=== PATIENT | female | born 1950 | race Caucasian/White ===

== ENCOUNTER 2020-03-31 10:00 | Observation (INO) ==
--- NOTE | 2020-03-31 10:18 | CT Scan Report ---
CT OF THE HEAD WITHOUT CONTRAST CLINICAL HISTORY: Stroke Like Symptoms COMPARISON STUDY: Head CT August 15, 2014. CT DOSE: 537.48 mGy.cm TECHNIQUE: Helical axial images of the head were obtained without IV contrast. Automated exposure con trol was utilized for the study. A dose lowering technique was utilized adhering to the principles o f ALARA. FINDINGS: No acute intracranial hemorrhage, midline shift or mass effect is present. The ventricular system is unremarkable. Mild matter hypodensity suggests small vessel disease. The basal cisterns are patent. No extra-axial collections are present. There are no findings to suggest acute dural sinus t hrombosis or acute territorial infarct. No significant calvarial abnormalities are present. Visualize d portions of the sinuses and mastoid air cells are clear. IMPRESSION: No acute intracranial findings. ACT 112: Negative or not required by law. Electronically signed by: Ashutosh Chambers M.D. 03/31/2020 10:16 AM
--- NOTE | 2020-03-31 10:23 | Emergency Department Note ---
Impression & Plan Stroke-like symptoms, Right facial numbness, Hypertension ED Provider Note NAME: UZAIR KNUTSON AGE: 70 SEX: F ARRIVES VIA: Ambulance INFORMANT: Patient, ED PROVIDER(S): Torito Bazan MD CHIEF COMPLAINT: Right sided numbness. PLAN: Disposition: Admit. Patient seen initially at 1000. MEDICAL DECISION MAKING: The patient is a 70-year-old woman with a past medical history of rheumatoid arthritis who presents emergency department with strokelike symptoms began at 0914 when she began to complain of numbness and tingling in the right side of her face and arm warfare member appreciated drooping of the right side of her face which all approximately lasted 20 minutes and was resolved upon EMS arrival though she did have a brief episode of word finding difficulty but then was speaking fluently for EMS and on arrival. She had a low-grade fever of 99.9 per EMS but has no respiratory symptoms and while she has family visiting from [place] there are no members with Covid-like symptoms. The patient was seen emergency department on 03/29 for presumed incomplete treatment of pyelonephritis change from Bactrim to ciprofloxacin. She denies cough, congestion, CP, SOB, n/v/diarrhea. Stroke alert was activated and given the patient then had intermittent aphasia and transient trouble reading telestroked evaluation was completed by Dr. Hector, [facility] telestroke neurology. During her evaluation the patient's symptoms did resolve and so was not considered a TPA candidate or need for emergent CTA given the patient's history of iodine allergy. Recommends full dose aspirin and reassessment for tolerance while inpatient given her history of GI symptoms related to aspirin. Recommends MRA of head and neck and MRI. EKG without overt acute ischemia. CXR most likely atelectasis as patient denies respiratory symptoms. WBC and platelets wnl. H/H 11.9/36.8 approximate to prior. Chemistry without acidosis. Electrolytes and LFTs unremarkable. Troponin negative/undetectable. Covid19 RNA, NAAT negative. Triage Nursing notes reviewed and agree them. Prior medical records reviewed Vital Signs: reviewed and remarkable for no significant abnormalities Differential diagnosis: Infection, dehydration, metabolic abnormality, hypo/hyperglycemia, electrolyte disturbance, anemia, hypoxia, cardiac sources, intracerebral event, toxicologic, neurologic, as well as other pathologies. ER treatment provided: See below. Diagnostics interpreted by me: ECG: NSR, 75 bpm, no ectopy, no overt ST elevation or depression. Cardiac Monitoring: An order for continuous cardiac monitoring was placed and demonstrated NSR, 75 bpm, no ectopy. Laboratory studies: See below Imaging studies: XR chest 1V portable CLINICAL HISTORY: Stroke Like Symptoms COMPARISON STUDY: Chest radiograph August 15, 2014. FINDINGS: Lung volumes are normal. There is no pneumothorax or pleural effusion. Minimal left basilar opacity is noted. Cardiac size is normal. Mediastinal contours are normal. There is no evidence for pulmonary edema. IMPRESSION: Minimal left basilar opacity. Atelectasis is favored although an infectious process could appear similar. -- CT OF THE HEAD WITHOUT CONTRAST CLINICAL HISTORY: Stroke Like Symptoms COMPARISON STUDY: Head CT August 15, 2014. CT DOSE: 537.48 mGy.cm TECHNIQUE: Helical axial images of the head were obtained without IV contrast. Automated exposure control was utilized for the study. A dose lowering technique was utilized adhering to the principles of ALARA. FINDINGS: No acute intracranial hemorrhage, midline shift or mass effect is present. The ventricular system is unremarkable. Mild matter hypodensity suggests small vessel disease. The basal cisterns are patent. No extra-axial collections are present. There are no findings to suggest acute dural sinus thrombosis or acute territorial infarct. No significant calvarial abnormalities are present. Visualized portions of the sinuses and mastoid air cells are clear. IMPRESSION: No acute intracranial findings. Consultation(s): Dr. Hector, [facility] telestroke neurology Dr[facility] Lagunas[facility] HPI: The patient is a 70-year-old woman with a past medical history of rheumatoid arthritis who presents emergency department with strokelike symptoms began at 0914 when she began to complain of numbness and tingling in the right side of her face and arm warfare member appreciated drooping of the right side of her face which all approximately lasted 20 minutes and was resolved upon EMS arrival though she did have a brief episode of word finding difficulty but then was speaking fluently for EMS and on arrival. She had a low-grade fever of 99.9 per EMS but has no respiratory symptoms and while she has family visiting from [place] there are no members with Covid-like symptoms. The patient was seen emergency department on 03/29 for presumed incomplete treatment of pyelonephritis change from Bactrim to ciprofloxacin. She denies cough, con gestion, CP, SOB, n/v/diarrhea. ROS: See above HPI for pertinent positives & negatives. A total of 10 systems reviewed and were otherwise negative. PAST MEDICAL HISTORY:See Below PAST SURGICAL HISTORY:See Below FAMILY HISTORY:See Below SOCIAL HISTORY:See Below HOME MEDICATIONS:See Below ALLERGIES:See Below VITALS:See Below PHYSICAL EXAMINATION: GENERAL: Awake, alert, anxious-appearing, in no distress, BMI 33.4 HENT: Normocephalic, atraumatic. Oropharynx with dry mucous membranes and otherwise unremarkable.. EYES: Normal conjunctiva. Sclera non-icteric. EOMI. No nystamgus. PEARRL. NECK: Supple. No nuchal rigidity. FROM. No JVD. RESPIRATORY: Clear to auscultation. CARDIAC: Regular rate, normal rhythm. Extremities warm and well perfused. Pulses equal. ABDOMEN: Soft, non-distended. No tenderness to palpation. No rebound or guarding. No masses. RECTAL: Deferred. MUSCULOSKELETAL: Chest examination reveals no tenderness. The back is symmetrical on inspection without obvious abnormality. There is no CVA tenderness to palpation. No joint edema. LOWER EXTREMITIES: Calves are equal size bilaterally and non-tender. No edema. No discoloration. NEURO: Face is symmetric. 5/5 strength and SILT x 4 extremities. Intact finger to nose. Speech is fluent on initial exam. SKIN: No rash or jaundice noted. ED COURSE: Critical Care: I have personally spent greater than 35 minutes of critical care time in the direct management of this patient. This includes bedside care, interpretation of diagnostic studies, and testing, discussion with consultants, patient, and family members, and other required patient management activities. This 35 minutes is in excess of all separately billable procedures. Torito Bazan MD Past Med/Surg History Medical History Rheumatoid arthritis Surgical History H/O gastric bypass H/O: hysterectomy History of cholecystectomy Social History Smoking Status: Current every day smoker Tobacco Type: Cigarettes Second Hand Exposure: No; Do You Dip or Chew Tobacco: No; Tobacco Cessation Education Requested by Patient: No Hx Alcohol Use: Yes Alcohol type: beer Hx Substance Use: No Preferred Language: Cypriot Communication Ability: Effective Current Living Situation: Family Other Information That Helps Us Care for You: Yes Feels Safe at Home: Yes Safety Concerns: Feels Safe At This Time Assistive Devices: Cane and Glasses Allergies Allergies Allergy/AdvReac Type Severity Reaction Status Date / Time infliximab Allergy Severe SHORTNESS Verified 03/31/20 12:01 OF BREATH clindamycin Allergy Mild Verified 03/31/20 12:01 iodine Allergy Mild Verified 03/31/20 12:01 Penicillins Allergy Mild Verified 03/31/20 12:01 Sulfa (Sulfonamide AdvReac Severe GI Unverified 03/31/20 12:01 Antibiotics) UPSET/DIARRHEA adhesive AdvReac Mild Unknown rxn Verified 03/31/20 12:01 Home Meds Home Medications Medication Instructions Recorded Confirmed cholecalciferol (vitamin D3) 2,000 mcg PO QAM 03/21/20 03/31/20 cyanocobalamin (vitamin B-12) 1,000 mcg IM .[id number] 03/21/20 03/31/20 [Cyanacobalamin] methotrexate sodium 20 mg PO WE 03/21/20 03/31/20 pedi multivit no.19-folic acid 1 tab PO BID 03/21/20 03/31/20 [Flintstones Multi-Vit Gummies] hydrocodone-acetaminophen 1 tab PO Q6H PRN 03/29/20 03/31/20 Previous Rx's Medication Instructions Recorded ciprofloxacin HCl 500 mg PO BID #14 tab 03/29/20 Results & Data (ED) Vital Signs Vital Signs - 24 hr 03/31/20 10:00 03/31/20 10:10 03/31/20 10:14 Pulse Rate 78 72 77 Pulse Rate [Right Finger] Pulse Rate from SpO2 Sensor 78 Respiratory Rate 20 20 22 Respiratory Effort / Characteristics Non-Labored Respiratory Depth Normal Blood Pressure 139/107 H 139/107 H Blood Pressure [Right Arm] Blood Pressure Mean 117 121 Blood Pressure Mean [Right Arm] Pulse Oximetry 96 100 96 Oxygen Delivery Method Room Air Room Air Sepsis Recent Fever Within 48 Hours No Sepsis New/Unexplained Change in Mental Status N/A Sepsis Action Taken by Nursing No Action Required 03/31/20 10:15 03/31/20 10:20 03/31/20 10:30 Pulse Rate 79 77 77 Pulse Rate [Right Finger] Pulse Rate from SpO2 Sensor 78 77 76 Respiratory Rate 14 16 17 Respiratory Effort / Characteristics Respiratory Depth Blood Pressure Blood Pressure [Right Arm] Blood Pressure Mean Blood Pressure Mean [Right Arm] Pulse Oximetry 97 97 96 Oxygen Delivery Method Sepsis Recent Fever Within 48 Hours Sepsis New/Unexplained Change in Mental Status Sepsis Action Taken by Nursing 03/31/20 10:31 03/31/20 10:40 03/31/20 10:46 Pulse Rate 73 75 74 Pulse Rate [Right Finger] 74 Pulse Rate from SpO2 Sensor 73 74 76 Respiratory Rate 25 H 21 19 Respiratory Effort / Characteristics Non-Labored Respiratory Depth Normal Blood Pressure 160/95 H 154/92 H Blood Pressure [Right Arm] 160/95 H Blood Pressure Mean 112 101 Blood Pressure Mean [Right Arm] 116 Pulse Oximetry 96 96 98 Oxygen Delivery Method Room Air Sepsis Recent Fever Within 48 Hours Sepsis New/Unexplained Change in Mental Status Sepsis Action Taken by Nursing 03/31/20 10:50 03/31/20 11:13 03/31/20 11:20 Pulse Rate 77 74 74 Pulse Rate [Right Finger] Pulse Rate from SpO2 Sensor 78 Respiratory Rate 18 23 22 Respiratory Effort / Characteristics Respiratory Depth Blood Pressure Blood Pressure [Right Arm] Blood Pressure Mean Blood Pressure Mean [Right Arm] Pulse Oximetry 97 Oxygen Delivery Method Sepsis Recent Fever Within 48 Hours Sepsis New/Unexplained Change in Mental Status Sepsis Action Taken by Nursing 03/31/20 11:30 03/31/20 11:40 03/31/20 11:50 Pulse Rate 75 69 75 Pulse Rate [Right Finger] Pulse Rate from SpO2 Sensor Respiratory Rate 20 21 23 Respiratory Effort / Characteristics Respiratory Depth Blood Pressure Blood Pressure [Right Arm] Blood Pressure Mean Blood Pressure Mean [Right Arm] Pulse Oximetry Oxygen Delivery Method Sepsis Recent Fever Within 48 Hours Sepsis New/Unexplained Change in Mental Status Sepsis Action Taken by Nursing 03/31/20 12:00 Pulse Rate 72 Pulse Rate [Right Finger] Pulse Rate from SpO2 Sensor Respiratory Rate 14 Respiratory Effort / Characteristics Respiratory Depth Blood Pressure Blood Pressure [Right Arm] Blood Pressure Mean Blood Pressure Mean [Right Arm] Pulse Oximetry Oxygen Delivery Method Sepsis Recent Fever Within 48 Hours Sepsis New/Unexplained Change in Mental Status Sepsis Action Taken by Nursing Laboratory Data Attestation: I reviewed the patient's lab results. Result diagrams: 03/31/20 10:20 03/31/20 10:20 Lab Results 03/31/20 03/31/2020 Range/Units 10:16 10:20 10:20 WBC 6.76 (4.8-10.8) K/uL RBC 4.00 L (4.2-5.4) M/uL Hgb 11.9 L (12.0-16.0) g/dL Hct 36.8 L (37-47) % MCV 92.0 (80-100) fL MCH 29.8 (25-34) pg MCHC 32.3 (32-36) g/dL RDW Std Deviation 52.1 H (36.4-46.3) fL RDW Coeff of Doroteo 15.5 H (11.5-14.5) % Plt Count 228 (130-400) K/uL MPV 10.7 H (7.4-10.4) fL Immature Gran % (Auto) 0.1 % Neut % (Auto) 54.0 % Lymph % (Auto) 27.5 % [place] % (Auto) 16.9 % Eos % (Auto) 0.9 % Baso % (Auto) 0.6 % Neut # (Auto) 3.65 (1.4-6.5) K/uL Lymph # (Auto) 1.86 (1.2-3.4) K/uL [place] # (Auto) 1.14 H (0.11-0.59) K/uL Eos # (Auto) 0.06 (0-0.5) K/uL Baso # (Auto) 0.04 (0-0.2) K/uL Immature Gran # (Auto) 0.01 (0.00-0.02) K/uL PT (9.0-12.0) Seconds INR (0.9-1.1) APTT (21.0-31.0) Seconds PTT Ratio Sodium (136-145) mmol/L Potassium (3.5-5.1) mmol/L Chloride (98-107) mmol/L Carbon Dioxide (21-32) mmol/L Anion Gap (3-11) BUN (7-18) mg/dl Creatinine (0.6-1.2) mg/dl Est Cr Clr Drug Dosing ml/min Est GFR ( Amer) Est GFR (Non-Af Amer) BUN/Creatinine Ratio (10-20) Glucose (70-99) mg/dl POC Glucose 126 H (70-99) mg/dl Calcium (8.5-10.1) mg/dl Magnesium (1.8-2.4) mg/dl Total Bilirubin (0.2-1) mg/dl AST (15-37) U/L ALT (12-78) U/L Alkaline Phosphatase (45-117) U/L Troponin I (0-0.045) ng/ml Total Protein (6.4-8.2) gm/dl Albumin (3.4-5.0) gm/dl Globulin (2.5-4.0) gm/dl Albumin/Globulin Ratio (0.9-2) COVID-19 Eval Order SARS-CoV-2, RNA, NAAT (NEGATIVE) Blood Type O Positive Antibody Screen NEGATIVE 03/31/20 03/31/20 03/31/20 Range/Units 10:20 10:20 11:15 WBC (4.8-10.8) K/uL RBC (4.2-5.4) M/uL Hgb (12.0-16.0) g/dL Hct (37-47) % MCV (80-100) fL MCH (25-34) pg MCHC (32-36) g/dL RDW Std Deviation (36.4-46.3) fL RDW Coeff of Doroteo (11.5-14.5) % Plt Count (130-400) K/uL MPV (7.4-10.4) fL Immature Gran % (Auto) % Neut % (Auto) % Lymph % (Auto) % [place] % (Auto) % Eos % (Auto) % Baso % (Auto) % Neut # (Auto) (1.4-6.5) K/uL Lymph # (Auto) (1.2-3.4) K/uL [place] # (Auto) (0.11-0.59) K/uL Eos # (Auto) (0-0.5) K/uL Baso # (Auto) (0-0.2) K/uL Immature Gran # (Auto) (0.00-0.02) K/uL PT 11.8 (9.0-12.0) Seconds INR 1.1 (0.9-1.1) APTT 25.6 (21.0-31.0) Seconds PTT Ratio 0.9 Sodium 137 (136-145) mmol/L Potassium 3.6 (3.5-5.1) mmol/L Chloride 101 (98-107) mmol/L Carbon Dioxide 29 (21-32) mmol/L Anion Gap 7.0 (3-11) BUN 13 (7-18) mg/dl Creatinine 0.57 L (0.6-1.2) mg/dl Est Cr Clr Drug Dosing 90.3 ml/min Est GFR ( Amer) 108.1 Est GFR (Non-Af Amer) 93.3 BUN/Creatinine Ratio 23.2 H (10-20) Glucose 120 H (70-99) mg/dl POC Glucose (70-99) mg/dl Calcium 8.7 (8.5-10.1) mg/dl Magnesium 1.8 (1.8-2.4) mg/dl Total Bilirubin 0.5 (0.2-1) mg/dl AST 30 (15-37) U/L ALT 40 (12-78) U/L Alkaline Phosphatase 83 (45-117) U/L Troponin I < 0.015 (0-0.045) ng/ml Total Protein 6.8 (6.4-8.2) gm/dl Albumin 3.0 L (3.4-5.0) gm/dl Globulin 3.8 (2.5-4.0) gm/dl Albumin/Globulin Ratio 0.8 L (0.9-2) COVID-19 Eval [id number] SARS-CoV-2, RNA, NAAT (NEGATIVE) Blood Type Antibody Screen 03/31/20 Range/Units 11:15 WBC (4.8-10.8) K/uL RBC (4.2-5.4) M/uL Hgb (12.0-16.0) g/dL Hct (37-47) % MCV (80-100) fL MCH (25-34) pg MCHC (32-36) g/dL RDW Std Deviation (36.4-46.3) fL RDW Coeff of Doroteo (11.5-14.5) % Plt Count (130-400) K/uL MPV (7.4-10.4) fL Immature Gran % (Auto) % Neut % (Auto) % Lymph % (Auto) % [place] % (Auto) % Eos % (Auto) % Baso % (Auto) % Neut # (Auto) (1.4-6.5) K/uL Lymph # (Auto) (1.2-3.4) K/uL [place] # (Auto) (0.11-0.59) K/uL Eos # (Auto) (0-0.5) K/uL Baso # (Auto) (0-0.2) K/uL Immature Gran # (Auto) (0.00-0.02) K/uL PT (9.0-12.0) Seconds INR (0.9-1.1) APTT (21.0-31.0) Seconds PTT Ratio Sodium (136-145) mmol/L Potassium (3.5-5.1) mmol/L Chloride (98-107) mmol/L Carbon Dioxide (21-32) mmol/L Anion Gap (3-11) BUN (7-18) mg/dl Creatinine (0.6-1.2) mg/dl Est Cr Clr Drug Dosing ml/min Est GFR ( Amer) Est GFR (Non-Af Amer) BUN/Creatinine Ratio (10-20) Glucose (70-99) mg/dl POC Glucose (70-99) mg/dl Calcium (8.5-10.1) mg/dl Magnesium (1.8-2.4) mg/dl Total Bilirubin (0.2-1) mg/dl AST (15-37) U/L ALT (12-78) U/L Alkaline Phosphatase (45-117) U/L Troponin I (0-0.045) ng/ml Total Protein (6.4-8.2) gm/dl Albumin (3.4-5.0) gm/dl Globulin (2.5-4.0) gm/dl Albumin/Globulin Ratio (0.9-2) COVID-19 Eval Order SARS-CoV-2, RNA, NAAT NEGATIVE (NEGATIVE) Blood Type Antibody Screen Administered Medications Ciprofloxacin (Ciprofloxacin 500 Mg Tab) 500 mg PO BID STEVE Stop: 04/05/20 20:59 Last Admin: 03/31/20 20:29 Dose: 500 mg Documented by: [id number] Insulin Aspart (Insulin Aspart 100 Units/Ml 3 Ml Pen) 0 units SC ACHS STEVE Stop: 04/30/20 16:29 Last Admin: 03/31/20 20:32 Dose: 1 units Documented by: [id number] Cosigned by: [id number] Admin: 03/31/20 18:23 Dose: Not Given Documented by: [id number] Cosigned by: [id number] Multivitamins/Folic Acid/Vitamin C (Multivitamin Chewable Tab) 1 tab PO BID STEVE Stop: 04/30/20 20:59 Last Admin: 03/31/20 20:28 Dose: 1 tab Documented by: [id number] Pantoprazole Sodium (Pantoprazole 40 Mg Tab) 40 mg PO DAILY STEVE Stop: 04/03/20 09:01 Last Admin: 03/31/20 18:23 Dose: Not Given Documented by: [id number] Discontinued Medications Aspirin (Aspirin Chew 324 Mg) Confirm Administered Dose 324 mg .ROUTE .STK-MED ONE Stop: 03/31/20 10:41 Last Admin: 03/31/20 10:42 Dose: 324 mg Documented by: [id number] Aspirin (Aspirin Chew 324 Mg) 324 mg PO NOW STA Stop: 03/31/20 10:51 Last Admin: 03/31/20 11:00 Dose: Not Given Documented by: [id number] Sodium Chloride (Nss 1000ml) 1,000 mls @ 999 mls/hr IV .Q1H1M ONE Stop: 03/31/20 11:24 Last Infusion: 03/31/20 14:07 Dose: 0 mls/hr Documented by: [id number] Admin: 03/31/20 10:42 Dose: 999 mls/hr Documented by: [id number] Discharge Plan Visit Data Chief Complaint: Stroke Alert ED Provider: Torito Bazan Discharge Problem: Stroke-like symptoms, Right facial numbness, Hypertension Patient Disposition: Admitted As Inpatient Discharge Instructions Interventions: ED Discharge Assessment Last Done: 03/31/20 14:08 Discharge Problem: Hypertension Qualifiers: Hypertension type: unspecified Qualified Code(s): I10 - Essential (primary) hypertension
[2020-03-31] MEDS ORDERED: SODIUM CHLORIDE 0.9% 1000ML 1,000 ML IV ONE (10:24)
[2020-03-31 10:29] LABS: Basophils # (auto) 0.04 K/uL (0-0.2); Basophils % (auto) 0.6 %; Eosinophils # (auto) 0.06 K/uL (0-0.5); Eosinophils % (auto) 0.9 %; Hematocrit (blood only) 36.8 % (37-47); Hemoglobin 11.9 g/dL (12.0-16.0); Immature Granulocytes # (auto) 0.01 K/uL (0.00-0.02); Immature Granulocytes % (auto) 0.1 %; Lymphocytes # (auto) 1.86 K/uL (1.2-3.4); Lymphocytes % (auto) 27.5 %; Mean Corpuscular Hemoglobin 29.8 pg (25-34); Mean Corpuscular Hgb Conc 32.3 g/dL (32-36); Mean Platelet Volume 10.7 fL (7.4-10.4); Monocytes # (auto) 1.14 K/uL (0.11-0.59); Monocytes % (auto) 16.9 %; Neutrophils # (auto) 3.65 K/uL (1.4-6.5); Platelet Count 228 K/uL (130-400); RDW Coefficient of Variation 15.5 % (11.5-14.5); RDW Standard Deviation 52.1 fL (36.4-46.3); White Blood Count 6.76 K/uL (4.8-10.8)
[2020-03-31] MEDS ORDERED: ASPIRIN CHEW 324 MG ONE (10:40)
[2020-03-31 10:45] LABS: INR 1.1 (0.9-1.1); Partial Thromboplastin Ratio 0.9; Partial Thromboplastin Time 25.6 Seconds (21.0-31.0); Prothrombin Time 11.8 Seconds (9.0-12.0)
[2020-03-31 10:48] LABS: Alanine Aminotransferase 40 U/L (12-78); Aspartate Aminotransferase 30 U/L (15-37); BUN Creatinine Ratio 23.2 (10-20); Blood Urea Nitrogen 13 mg/dl (7-18); Calcium 8.7 mg/dl (8.5-10.1); Carbon Dioxide 29 mmol/L (21-32); Chloride 101 mmol/L (98-107); Creatinine Clr Calc Pharmacy 90.3 ml/min; Est GFR (African American) 108.1; Est GFR (Non-African American) 93.3; Glucose 120 mg/dl (70-99); Magnesium 1.8 mg/dl (1.8-2.4); Potassium 3.6 mmol/L (3.5-5.1); Sodium 137 mmol/L (136-145)
[2020-03-31] MEDS ORDERED: ASPIRIN CHEW 324 MG PO STA (10:50)
[2020-03-31 10:53] LABS: Albumin Globulin Ratio 0.8 (0.9-2); Alkaline Phosphatase 83 U/L (45-117); Bilirubin,Total 0.5 mg/dl (0.2-1); Globulin 3.8 gm/dl (2.5-4.0); Total Protein 6.8 gm/dl (6.4-8.2); Troponin I < 0.015 ng/ml (0-0.045)
--- NOTE | 2020-03-31 11:03 | XRay Report ---
XR chest 1V portable CLINICAL HISTORY: Stroke Like Symptoms COMPARISON STUDY: Chest radiograph August 15, 2014. FINDINGS: Lung volumes are normal. There is no pneumothorax or pleural effusion. Minimal left basilar opacity is noted. Cardiac size is normal. Mediastinal contours are normal. There is no evidence for pulmonary edema. IMPRESSION: Minimal left basilar opacity. Atelectasis is favored although an infectious process coul d appear similar. ACT 112: Negative or not required by law. Electronically signed by: Ashutosh Chambers M.D. 03/31/2020 11:02 AM
--- NOTE | 2020-03-31 12:32 | History & Physical Report ---
Date of Service March 31, 2020 Assessment & Plan (1) Stroke-like symptoms: Presented with right upper extremity numbness and tingling with right facial droop around 9:14 AM on 03/31/2020 Associated with difficulty in finding words which resolved subsequently No other associated symptoms were noted except mild headache Evaluated by telemedicine from [place] and recommended to have full dose of aspirin and no TPA History of questionable GI upset with NSAID use we will put her on Protonix 40 mg daily Initial CAT scan is unremarkable We will get MRA of the head and neck and MRI of the head without contrast and echocardiogram Will get lipid profile in the morning and decide on statin therapy Does not have any problem with swallowing [facility] will be consulted PT and OT evaluation (2) Acute pyelonephritis: Recently diagnosed to have E. coli UTI and possible pyonephritis Has been on Cipro and will continue (3) Rheumatoid arthritis: Has severe remote arthritic changes involving the upper and lower extremities No acute arthritis We will continue methotrexate (4) Diabetes: Has not been taking any medication and/or insulin We will put her on sliding scale insulin coverage while in the hospital (5) Closed head injury: No acute problem DVT prophylaxis Subcu heparin CODE STATUS Full Discussed with the daughter History of Present Illness Chief Complaint: Right-sided hand numbness and facial droop Primary Care Provider: Demetrio Noel MD She is a 70-year-old obese female with significant past medical history of rheumatoid arthritis, type 2 diabetes , history of closed head injury and recent diagnosis of acute pyonephritis has been complaining of sudden onset of right upper extremity numbness and tingling associated with right facial droop and garbled speech which happened around 9:14 AM today. She was saying goodbye to her family members who were traveling to [place] today and when she bended forward to reach her grand she felt dizzy and at the same time experienced right upper extremity numbness with facial droop on the right side and garbled speech. This lasted for about 5 minutes and following that she has had similar numbness involving the left upper extremity as well. She complains to have some headache which is bifrontal during this episode. She denies any blurred vision, chest pain and/or palpitation, any shortness of breath, any abdominal discomfort, nausea and or vomiting. He did not complain any weakness involving any of the extremities. She did not have any episode like this before. She was brought into the emergency room via ambulance and she was evaluated by telemetry stroke team from [place]. Her symptoms resolved and initial CAT scan of the head was unremarkable and other relevant blood test were unremarkable to. She did not qualify for any TPA and she was advised to have full dose aspirin as per [place] neurologist. She is allergic to iodine and she will have a MRA of the head and neck and MRI of the head today. Allergies Allergy/AdvReac Type Severity Reaction Status Date / Time infliximab Allergy Severe SHORTNESS Verified 03/31/20 12:01 OF BREATH clindamycin Allergy Mild Verified 03/31/20 12:01 iodine Allergy Mild Verified 03/31/20 12:01 Penicillins Allergy Mild Verified 03/31/20 12:01 Sulfa (Sulfonamide AdvReac Severe GI Unverified 03/31/20 12:01 Antibiotics) UPSET/DIARRHEA adhesive AdvReac Mild Unknown rxn Verified 03/31/20 12:01 Home Medications Medication Instructions Recorded Confirmed Type cholecalciferol (vitamin D3) 2,000 mcg PO QAM 03/21/20 03/31/20 History cyanocobalamin (vitamin B-12) 1,000 mcg IM .[id number] 03/21/20 03/31/20 History [Cyanacobalamin] methotrexate sodium 20 mg PO WE 03/21/20 03/31/20 History pedi multivit no.19-folic acid 1 tab PO BID 03/21/20 03/31/20 History [Flintstones Multi-Vit Gummies] ciprofloxacin HCl 500 mg PO BID #14 tab 03/29/20 03/31/20 Rx hydrocodone-acetaminophen 1 tab PO Q6H PRN 03/29/20 03/31/20 History Past Med/Surg History Medical History Rheumatoid arthritis Surgical History H/O gastric bypass H/O: hysterectomy History of cholecystectomy Social History Smoking Status: Unknown if ever smoked Tobacco Type: Cigarettes Preferred Language: Sinhala Feels Safe at Home: Yes Review of Systems Review of Systems: All systems reviewed & are unremarkable except as noted in HPI & below Physical Exam Physical Exam: Lying in bed comfortably Constitutional: well developed, well nourished and + obese; no acute distress and not ill appearing Eyes: PERRL, conjunctivae normal, anicteric sclerae ENMT: external ear and nose normal, oropharynx normal Neck: trachea midline, no thyromegaly Respiratory: normal respiratory effort; no respiratory distress Auscultation: lungs clear to auscultation bilaterally and + diminished lung sounds (Minimally diminished breath sounds bilaterally) Cardiovascular: Rate/Rhythm: regular rate and regular rhythm Heart Sounds: no murmur Extremities: + edema (Trace edema bilaterally) Gastrointestinal (Abdomen): Inspection/Auscultation: abdomen normal to inspection and normal bowel sounds; abdomen not distended Percussion/Palpation: abdomen soft; abdomen nontender Musculoskeletal: Has severe rheumatoid changes involving the upper and lower extremities but no acute arthritis in any joint Neurologic: Alert, awake and oriented x3. No facial droop and no focal sensory and motor deficit appreciated Lymphatic: no cervical or axillary lymphadenopathy Results & Data Results & Data ([facility]) Vital Signs (Past 12 Hours) Vital Signs Pulse Pulse Resp BP BP Pulse Ox 03/31/20 11:13 74 23 03/31/20 10:50 77 18 97 03/31/20 10:46 74 19 154/92 H 98 03/31/20 10:40 75 21 96 03/31/20 10:31 73 74 25 H 160/95 H 160/95 H 96 03/31/20 10:30 77 17 96 03/31/20 10:20 77 16 97 03/31/20 10:15 79 14 97 03/31/20 10:14 77 22 139/107 H 96 03/31/20 10:10 72 20 100 03/31/20 10:00 78 20 139/107 H 96 Laboratory Results Short CBC 03/31/20 Range/Units 10:20 WBC 6.76 (4.8-10.8) K/uL Hgb 11.9 L (12.0-16.0) g/dL Hct 36.8 L (37-47) % Plt Count 228 (130-400) K/uL BMP 03/31/20 10:20 Sodium 137 Potassium 3.6 Chloride 101 Carbon Dioxide 29 BUN 13 Creatinine 0.57 L Glucose 120 H Calcium 8.7 Cardiac Enzymes 03/31/20 Range/Units 10:20 Troponin I < 0.015 (0-0.045) ng/ml Liver Function 03/31/20 Range/Units 10:20 Total Bilirubin 0.5 (0.2-1) mg/dl AST 30 (15-37) U/L ALT 40 (12-78) U/L Alkaline Phosphatase 83 (45-117) U/L Albumin 3.0 L (3.4-5.0) gm/dl Medications Administered Current Inpatient Medications Aspirin (Aspirin 325 Mg Ectab) 325 mg PO QAM STEVE Stop: 05/01/20 08:59 Heparin Sodium (Porcine) (Heparin Sod 5,000 Unit/0.5 Ml Vial) 5,000 units SQ Q12 STEVE Stop: 04/30/20 20:59 Pantoprazole Sodium (Pantoprazole 40 Mg Tab) 40 mg PO DAILY STEVE Stop: 04/03/20 09:01 Code Status & VTE Plan VTE Prophylaxis Plan VTE Prophylaxis will be ordered: Yes
[2020-03-31] MEDS ORDERED: GLUCOSE 10 TABS/TUBE PO PRN (12:33)
[2020-03-31] MEDS ORDERED: GLUCOSE 40% GEL 15 GM TUBE PO PRN (12:33)
[2020-03-31] MEDS ORDERED: CARBOHYDRATES FOR HYPOGLYCEMIA PO PRN (12:33)
[2020-03-31] MEDS ORDERED: DEXTROSE 50% 50 ML SYRINGE IV PRN (12:33)
[2020-03-31] MEDS ORDERED: GLUCAGON FOR INJ 1 MG VIAL SQ PRN (12:33)
--- NOTE | 2020-03-31 13:44 | Electrocardiogram Report ---
Test Reason : Blood Pressure : / mmHG Vent. Rate : 075 BPM Atrial Rate : 075 BPM P-R Int : 158 ms QRS Dur : 072 ms QT Int : 396 ms P-R-T Axes : 013 031 043 degrees QTc Int : 442 ms Normal sinus rhythm Normal ECG When compared with ECG of 21-MAR-2020 18:12, No significant change was found Confirmed by Willie Jean ([id number]) on 03/31/2020 1:44:32 PM Referred By: REFERRED SELF Confirmed By:Willie Jean
[2020-03-31] MEDS ORDERED: HYDROcodone/ACETAMINOPHEN 10/325 TAB PO PRN (15:47)
--- NOTE | 2020-03-31 17:11 | Magnetic Resonance Report ---
MRI OF THE BRAIN WITHOUT CONTRAST CLINICAL HISTORY: Stroke like symptoms COMPARISON STUDY: Head CT August 15, 2014 and March 31, 2020. TECHNIQUE: Utilizing a 1.5 Elizabet magnet and dedicated coil, multiplanar, multiecho imaging of the bra in was performed without IV contrast. FINDINGS: There are no foci of stricture diffusion to suggest acute infarct. No acute intracranial he morrhage, midline shift or mass effect is present. Brain volume is normal for age. Ventricular system is unremarkable. Basal cisterns are patent. There are no extra-axial collections. Flow-voids for the major intracranial vessels are present. No intracranial masses identified on this unenhanced examina tion. Scattered small white matter T2 hyperintense foci suggest mild small vessel disease. Calvarial signal is normal. There is a mucous retention cyst within the right maxillary sinus. IMPRESSION: 1. No acute intracranial findings. 2. Multiple small white matter T2 hyperintense foci suggestive of mild small vessel disease. ACT 112: Negative or not required by law. Electronically signed by: Ashutosh Chambers M.D. 03/31/2020 5:09 PM
--- NOTE | 2020-03-31 17:13 | Magnetic Resonance Report ---
MRA OF THE INTRACRANIAL CIRCULATION WITHOUT CONTRAST CLINICAL HISTORY: Stroke like symptoms COMPARISON STUDY: None. TECHNIQUE: Utilizing a 1.5 Elizabet magnet and 3-D eivv-js-clstou technique, unenhanced MRA of the intra cranial circulation was obtained. FINDINGS: The bilateral M1, M2, A1 and A2 segments are patent. There is no abrupt vessel cut off. No intracranial aneurysm is identified. Posterior circulation is intact. Exam is mildly compromised by m otion artifact. There is moderate stenosis of the bilateral A1 segments. IMPRESSION: 1. No central vessel occlusion. No intracranial aneurysm. 2. Moderate stenosis of the bilateral A1 segments. ACT 112: Negative or not required by law. Electronically signed by: Ashutosh Chambers M.D. 03/31/2020 5:12 PM
--- NOTE | 2020-03-31 17:15 | Magnetic Resonance Report ---
MRA OF THE NECK WITHOUT CONTRAST CLINICAL HISTORY: Stroke like symptoms COMPARISON STUDY: None. TECHNIQUE: A 1.5 Elizabet magnet was utilized. 2-D and 3-D iuzw-op-iathuo imaging was performed to obt ain unenhanced MRA of the neck. NASCET criteria were utilized to estimate the degree of carotid sten osis. FINDINGS: This exam is markedly compromised given lack of postcontrast imaging. Evaluation of the soheila ateral common carotid, cervical internal carotid and vertebral arteries is essentially nondiagnostic. These vessels are grossly patent. IMPRESSION: Exam significantly compromised given lack of postcontrast imaging. Evaluation of the juan or vessels nearly nondiagnostic although these vessels are grossly patent. ACT 112: Negative or not required by law. Electronically signed by: Ashutosh Chambers M.D. 03/31/2020 5:14 PM
[2020-03-31] MEDS: PANTOprazole 40 MG TAB PO SCH (18:23)
[2020-03-31] MEDS: INSULIN ASPART 100 UNITS/ML 3 ML PEN SC SCH ×2 (18:23→20:32)
[2020-03-31] MEDS: MULTIVITAMIN CHEWABLE TAB PO SCH (20:28)
[2020-03-31] MEDS: CIPROFLOXACIN 500 MG TAB PO SCH (20:29)
[2020-03-31] MEDS: HEPARIN SOD 5,000 UNIT/0.5 ML VIAL SQ SCH (23:29)
[2020-04-01 07:41] LABS: Basophils # (auto) 0.03 K/uL (0-0.2); Basophils % (auto) 0.5 %; Eosinophils % (auto) 1.7 %; Hematocrit (blood only) 36.3 % (37-47); Immature Granulocytes # (auto) 0.01 K/uL (0.00-0.02); Immature Granulocytes % (auto) 0.2 %; Lymphocytes # (auto) 2.48 K/uL (1.2-3.4); Lymphocytes % (auto) 41.5 %; Mean Corpuscular Hemoglobin 30.1 pg (25-34); Mean Corpuscular Hgb Conc 33.1 g/dL (32-36); Mean Platelet Volume 11.1 fL (7.4-10.4); Monocytes # (auto) 1.07 K/uL (0.11-0.59); Monocytes % (auto) 17.9 %; Neutrophils # (auto) 2.28 K/uL (1.4-6.5); Neutrophils % (auto) 38.2 %; Platelet Count 285 K/uL (130-400); RDW Coefficient of Variation 15.7 % (11.5-14.5); RDW Standard Deviation 52.1 fL (36.4-46.3); Red Blood Count 3.99 M/uL (4.2-5.4); White Blood Count 5.97 K/uL (4.8-10.8)
[2020-04-01] MEDS: MULTIVITAMIN CHEWABLE TAB PO SCH (07:56)
[2020-04-01] MEDS: INSULIN ASPART 100 UNITS/ML 3 ML PEN SC SCH (07:58)
[2020-04-01] MEDS: CIPROFLOXACIN 500 MG TAB PO SCH (07:58)
[2020-04-01] MEDS: HEPARIN SOD 5,000 UNIT/0.5 ML VIAL SQ SCH (07:58)
[2020-04-01 08:01] LABS: BUN Creatinine Ratio 17.2 (10-20); Calcium 8.4 mg/dl (8.5-10.1); Creatinine Clr Calc Pharmacy 93.6 ml/min; Est GFR (African American) 109.4; Est GFR (Non-African American) 94.4; Potassium 3.7 mmol/L (3.5-5.1)
[2020-04-01] MEDS ORDERED: ASPIRIN 325 MG ECTAB PO SCH (09:00)
[2020-04-01] MEDS ORDERED: CHOLECALCIFEROL 1,000 UNITS 25 MCG TAB PO SCH (09:00)
--- NOTE | 2020-04-01 11:55 | Consultation Report ---
DATE OF CONSULTATION: 04/01/2020 NEUROLOGY CONSULTATION NOTE CHIEF COMPLAINT: Right hand numbness and facial droop. HISTORY OF PRESENT ILLNESS: A 70-year-old woman with a history of acute pyelonephritis, rheumatoid arthritis, and diabetes, admitted to the hospital yesterday for sudden onset of right upper extremity numbness and tingling, associated with a right facial droop and garbled speech. Symptoms occurred around 9:00 a.m. yesterday morning. She was saying good bye to her family who were traveling to [place] when she felt dizzy and at the same time she experienced right upper extremity numbness and facial droop on the right side and dysarthric speech. The episode lasted for about 5 minutes, which then followed with numbness involving the left upper extremity as well. Upon arrival, she complained of some headache which was bifrontal. She had no blurred vision, chest pain, palpitations or shortness of breath. She denies any weakness involving any of the extremities. She has never had any prior similar symptoms. She was brought to the Emergency Department via ambulance and evaluated by a tele stroke provider. Her symptoms had resolved by the time of the her CT scan. TPA was not administered. She was given aspirin and admitted for further stroke evaluation. Neurology was consulted upon admission. ALLERGIES: INFLIXIMAB, CLINDAMYCIN, IODINE, PENICILLIN, SULFA, ADHESIVE TAPE. HOME MEDICATIONS: Vitamin D, vitamin B12, methotrexate, multivitamin, ciprofloxacin, hydrocodone. PAST MEDICAL HISTORY: Pertinent for rheumatoid arthritis and type 2 diabetes. PAST SURGICAL HISTORY: Gastric bypass, hysterectomy, cholecystectomy. FAMILY HISTORY: No pertinent family history noted. SOCIAL HISTORY: She is a nonsmoker, denies any alcohol use. REVIEW OF SYSTEMS: All systems reviewed and unremarkable except as noted above in the HPI. PHYSICAL EXAMINATION: VITAL SIGNS: Blood pressure 125/82, pulse is 76, respiratory rate 18, temperature is 36.8 degrees Celsius, oxygen saturation is 94% on room air. I did not see or examine this patient. Patient was discharged this afternoon prior to me seeing her. DIAGNOSTIC TESTING AND LABORATORY VALUES: WBC 5.97, hemoglobin 12.0, platelet count 285. INR is 1.1. Sodium is 139, potassium 3.7, chloride 104, carbon dioxide 29, BUN is 9, creatinine 0.55, glucose is 110, triglycerides are 146, LDL is 86, HDL is 44. IMAGING: Head CT noncontrast showed no acute intracranial findings. MRI of the brain showed no acute intracranial findings. No evidence of acute stroke. Multiple small white matter T2 hyperintensities suggestive of mild small vessel ischemic disease. MRA of the head, no intracranial vessel occlusion. No intracranial aneurysm, moderate stenosis of the bilateral A1 segments. MRA of the neck, limited examination due to post-contrast imaging. Vessels are grossly patent. ASSESSMENT AND PLAN: A 70-year-old woman with history of rheumatoid arthritis on methotrexate and non-insulin dependent type 2 diabetes, admitted to the hospital yesterday with transient right upper extremity numbness, facial droop, and dysarthria, concerning for possible transient ischemic attack. MRI brain and vessel imaging shows no evidence of an acute stroke. Agree with starting aspirin, which could be the enteric coated form if the patient has problems with NSAIDs. Otherwise, would recommend starting a low dose statin medication. Otherwise, I believe the patient is okay for discharge and can follow up with neurology in 8 weeks. Blood pressure appears well controlled with systolic blood pressure goal less than 140 and diastolic blood pressure less than 90. Transthoracic echocardiogram was already completed and shows a normal ejection fraction with no evidence of a cardiac thrombus. Agree with PT, OT for any rehabilitation needs. Otherwise, please contact me with any additional questions or concerns. SABAS
[2020-04-01] MEDS: PANTOprazole 40 MG TAB PO SCH (12:12)
--- NOTE | 2020-04-01 12:44 | Hospitalist Progress Note ---
Date of Service April 01, 2020 Assessment & Plan (1) Stroke-like symptoms: Presented with right upper extremity numbness and tingling with right facial droop around 9:14 AM on 03/31/2020 Associated with difficulty in finding words which resolved subsequently No other associated symptoms were noted except mild headache Evaluated by telemedicine from [place] and recommended to have full dose of aspirin and no TPA on admission Her head CT and Brain MRI and Head MRA and Neck MRA did not find evidence for acute infarcts of the brain Patient to be discharge to home Patient to follow up with outpatient primary care doctor with [facility]. Patient will need referral/appointment to see [facility] neurology in 8 weeks (as per 04/01/2020 Dr. Herrera Colmenares neurology consult of [facility] "A 70-year-old woman with history of rheumatoid arthritis on methotrexate and non- insulin dependent type 2 diabetes, admitted to the hospital yesterday with transient right upper extremity numbness, facial droop, and dysarthria, concerning for possible transient ischemic attack. MRI brain and vessel imaging shows no evidence of an acute stroke. Agree with starting aspirin, which could be the enteric coated form if the patient has problems with NSAIDs. Otherwise, would recommend starting a low dose statin medication. Otherwise, I believe the patient is okay for discharge and can follow up with neurology in 8 weeks. Blood pressure appears well controlled with systolic blood pressure goal less than 140 and diastolic blood pressure less than 90. Transthoracic echocardiogram was already completed and shows a normal ejection fraction with no evidence of a cardiac thrombus.") Patient to follow up with primary care on diabetes screening discharge medications sent electronically to pharmacy [facility] [address] [place] [id number] of aspirin 81 mg daily (with enteric coating) and atorvastatin 20 mg daily based on neurology recommendations. of aspirin 81 mg daily (with enteric coating) and atorvastatin 20 mg daily based on neurology recommendations. Patient can take pantoprazole 40 mg daily to minimize risk of GI bleed while on aspirin based on hospitalization utilization review Code 44 that patient does not require a 2 midnight stay as full admission and is to be discharge under observation status. This is verified by my hospitalist physician colleague (2) Diabetes: Patient to follow up with primary care on diabetes screening History of Pyelonephritis (resolved, completed treatment) -patient had finished 2 week course of antibiotics for pyelonephritis indication prior to coming to hospital. the recent 03/29/2020 CT abdomen did not find evidence of renal inflammation. Patient's admission UA is normal (3) Rheumatoid arthritis: Has severe remote arthritic changes involving the upper and lower extremities No acute arthritis continue methotrexate Admission and Anticipated Discharge Date Admission Date: March 31, 2020 Subjective Patient is ambulatory. She has a questionable right sided facial asymmetry suggestive of facial droop but no facial symptoms currently. Her hands have deformities from history of rheumatoid arthritis but no focal motor deficits on exam between right and left side of the body. Patient breathing on room air. No acute distress. She has eaten the meals without choking. There is no apparent dysarthria with her speech currently. Discharge plans and instructions discussed with patient after she was seen by neurologist Review of Systems Review of Systems: All systems reviewed & are unremarkable except as noted in Subjective Physical Exam Constitutional: cooperative and comfortable Eyes: PERRL, conjunctivae normal, anicteric sclerae EOM intact bilaterally ENMT: external ear and nose normal, oropharynx normal (perhaps mild right facial droop) Neck: normal visual inspection Respiratory: normal respiratory effort, lungs clear to auscultation Cardiovascular: Rate/Rhythm: regular rate Gastrointestinal (Abdomen): normal bowel sounds, soft, nontender, no hepatosplenomegaly Musculoskeletal: Head/Neck/Chest: normocephalic and head atraumatic Neurologic: CN's II-XI intact bilaterally and moves all extremities Psychiatric: A+Ox3, euthymic affect Results & Data Results & Data ([facility]) Vital Signs (Past 12 Hours) Vital Signs Temp Pulse Pulse Resp BP Pulse Ox Pulse Ox 04/01/20 12:11 37.2 C 74 18 112/78 93 04/01/20 11:00 92 04/01/20 10:56 76 04/01/20 08:10 36.8 C 76 18 125/82 94 04/01/20 03:50 37.5 C 73 16 127/78 94
--- NOTE | 2020-04-01 12:56 | Discharge Summary ---
Date of Service April 01, 2020 Admission HPI Per Admitting Provider She is a 70-year-old obese female with significant past medical history of rheumatoid arthritis, type 2 diabetes , history of closed head injury and recent diagnosis of acute pyonephritis has been complaining of sudden onset of right upper extremity numbness and tingling associated with right facial droop and garbled speech which happened around 9:14 AM today. She was saying goodbye to her family members who were traveling to [place] today and when she bended forward to reach her grand she felt dizzy and at the same time experienced right upper extremity numbness with facial droop on the right side and garbled speech. This lasted for about 5 minutes and following that she has had similar numbness involving the left upper extremity as well. She complains to have some headache which is bifrontal during this episode. She denies any blurred vision, chest pain and/or palpitation, any shortness of breath, any abdominal discomfort, nausea and or vomiting. He did not complain any weakness involving any of the extremities. She did not have any episode like this before. She was brought into the emergency room via ambulance and she was evaluated by telemetry stroke team from [place]. Her symptoms resolved and initial CAT scan of the head was unremarkable and other relevant blood test were unremarkable to. She did not qualify for any TPA and she was advised to have full dose aspirin as per [place] neurologist. She is allergic to iodine and she will have a MRA of the head and neck and MRI of the head today. Principal Diagnosis Stroke Like symptoms as transient ischemic attack (TIA) History of Pyelonephritis (resolved, completed treatment) Rheumatoid Arthritis in remission Discharge Exam Constitutional cooperative and comfortable Eyes PERRL, conjunctivae normal, anicteric sclerae EOM intact bilaterally ENMT external ear and nose normal, oropharynx normal (perhaps mild right facial droop) Neck normal visual inspection Respiratory normal respiratory effort, lungs clear to auscultation Cardiovascular Rate/Rhythm: regular rate Gastrointestinal (Abdomen) normal bowel sounds, soft, nontender, no hepatosplenomegaly Musculoskeletal Head/Neck/Chest: normocephalic and head atraumatic Neurologic CN's II-XI intact bilaterally and moves all extremities Psychiatric A+Ox3, euthymic affect Discharge Data Allergies Allergy/AdvReac Type Severity Reaction Status Date / Time infliximab Allergy Severe SHORTNESS Verified 03/31/20 12:01 OF BREATH clindamycin Allergy Mild Verified 03/31/20 12:01 iodine Allergy Mild Verified 03/31/20 12:01 Penicillins Allergy Mild Verified 03/31/20 12:01 Sulfa (Sulfonamide AdvReac Severe GI Unverified 03/31/20 12:01 Antibiotics) UPSET/DIARRHEA adhesive AdvReac Mild Unknown rxn Verified 03/31/20 12:01 Consultations 03/31/20 11:04 ED Decision to Admit Stat 03/31/20 12:32 Consult Neurology Routine Ordered Studies 03/31/20 09:58 CT head/brain wo con Stat 03/31/20 11:46 MR angio head wo con Urgent MR angio neck wo con Urgent MR brain wo con Urgent Hospital Course (1) Stroke-like symptoms: Presented with right upper extremity numbness and tingling with right facial droop around 9:14 AM on 03/31/2020 Associated with difficulty in finding words which resolved subsequently No other associated symptoms were noted except mild headache Evaluated by telemedicine from [place] and recommended to have full dose of aspirin and no TPA on admission Her head CT and Brain MRI and Head MRA and Neck MRA did not find evidence for acute infarcts of the brain Patient to be discharge to home Patient to follow up with outpatient primary care doctor with [facility]. Patient will need referral/appointment to see [facility] neurology in 8 weeks (as per 04/01/2020 Dr. Herrera Colmenares neurology consult of [facility] "A 70-year-old woman with history of rheumatoid arthritis on methotrexate and non- insulin dependent type 2 diabetes, admitted to the hospital yesterday with transient right upper extremity numbness, facial droop, and dysarthria, concerning for possible transient ischemic attack. MRI brain and vessel imaging shows no evidence of an acute stroke. Agree with starting aspirin, which could be the enteric coated form if the patient has problems with NSAIDs. Otherwise, would recommend starting a low dose statin medication. Otherwise, I believe the patient is okay for discharge and can follow up with neurology in 8 weeks. Blood pressure appears well controlled with systolic blood pressure goal less than 140 and diastolic blood pressure less than 90. Transthoracic echocardiogram was already completed and shows a normal ejection fraction with no evidence of a cardiac thrombus.") Patient to follow up with primary care on diabetes screening discharge medications sent electronically to pharmacy [facility] [place] [address] of aspirin 81 mg daily (with enteric coating) and atorvastatin 20 mg daily based on neurology recommendations. of aspirin 81 mg daily (with enteric coating) and atorvastatin 20 mg daily based on neurology recommendations. Patient can take pantoprazole 40 mg daily to minimize risk of GI bleed while on aspirin based on hospitalization utilization review Code 44 that patient does not require a 2 midnight stay as full admission and is to be discharge under observation status. This is verified by my hospitalist physician colleague (2) Diabetes: Patient to follow up with primary care on diabetes screening History of Pyelonephritis (resolved, completed treatment) -patient had finished 2 week course of antibiotics for pyelonephritis indication prior to coming to hospital. the recent 03/29/2020 CT abdomen did not find evidence of renal inflammation. Patient's admission UA is normal (3) Rheumatoid arthritis: Has severe remote arthritic changes involving the upper and lower extremities No acute arthritis continue methotrexate Total Time Total Time Spent Total Time Spent (In Minutes): 40 minutes Total Time Includes: Examination of the Patient, Discharge Planning, Medication Reconciliation and Communication With Other Providers Discharge Plan Discharge Items Patient Disposition: Home - Self-Care Reason For Visit: STROKE LIKE SYMPTOMS Discharge Diagnosis: Stroke Like symptoms as transient ischemic attack (TIA) History of Pyelonephritis (resolved, completed treatment) Rheumatoid Arthritis in remission Condition on Discharge: Good Activity: Per Instructions section Weightbearing: Full weightbearing Non-emergency contact: Primary Care Provider and Neurologist Call non-emergency contact if: you have any medication questions Follow-up/Referrals: Demetrio Noel MD [Primary Care Provider] - Diet: Heart Healthy Addtl Attending Provider Instructions: Patient to be discharge to home Patient to follow up with outpatient primary care doctor with [facility]. Patient will need referral/appointment to see [facility] neurology in 8 weeks Patient to follow up with primary care on diabetes screening discharge medications sent electronically to pharmacy [facility] [address] [place] [address] of aspirin 81 mg daily (with enteric coating) and atorvastatin 20 mg daily based on neurology recommendations. Patient can take pantoprazole 40 mg daily to minimize risk of GI bleed while on aspirin Addtl [employer] Technician Provider Instructions: as per 04/01/2020 Dr. Herrera Colmenares neurology consult of [facility] "A 70-year-old woman with history of rheumatoid arthritis on methotrexate and non- insulin dependent type 2 diabetes, admitted to the hospital yesterday with transient right upper extremity numbness, facial droop, and dysarthria, concerning for possible transient ischemic attack. MRI brain and vessel imaging shows no evidence of an acute stroke. Agree with starting aspirin, which could be the enteric coated form if the patient has problems with NSAIDs. Otherwise, would recommend starting a low dose statin medication. Otherwise, I believe the patient is okay for discharge and can follow up with neurology in 8 weeks. Blood pressure appears well controlled with systolic blood pressure goal less than 140 and diastolic blood pressure less than 90. Transthoracic echocardiogram was already completed and shows a normal ejection fraction with no evidence of a cardiac thrombus." Pending Studies at Discharge: No Stand-Alone Forms: [facility], Smoking Cessation Medications and DC Order Prescriptions: New aspirin [Ecotrin Low Strength] 81 mg tablet,delayed release (DR/EC) 81 mg PO DAILY 30 Days Qty: 30 RF: 0 atorvastatin 20 mg tablet 20 mg PO DAILY 30 Days Qty: 30 RF: 0 pantoprazole 40 mg Tablet,Delayed Release (Dr/Ec) 40 mg PO DAILY 30 Days Qty: 30 RF: 0 Continued methotrexate sodium 2.5 mg tablet 20 mg PO WE RF: 0 cholecalciferol (vitamin D3) 25 mcg (1,000 unit) Tablet 2,000 mcg PO QAM RF: 0 Flintstones Multi-Vit Gummies 200 mcg Tablet,Chewable 1 tab PO BID RF: 0 cyanocobalamin (vitamin B-12) 1,000 mcg/mL Solution 1,000 mcg IM .[id number] RF: 0 hydrocodone-acetaminophen 10-325 mg tablet 1 tab PO Q6H PRN (Reason: Pain, Severe) RF: 0 Discontinued ciprofloxacin HCl 500 mg tablet 500 mg PO BID Qty: 14 RF: 0 Discharge Orders: Discharge Order (Routine); Ordered 04/01/20 Ordered By: Lauri Calvillo Admission Data Admit Date/Time: 03/31/20 12:09 Attending Provider: Lauri Calvillo Admit Provider: Beverly Lagunas Primary Care Provider: Demetrio Noel Other Providers: Beverly Lagunas ; Herrera Colmenares
--- NOTE | 2020-04-01 17:06 | Communication Note ---
Date of Service: April 01, 2020 Code 44 attestation: She is a 70-year-old female with significant past medical history of rheumatoid arthritis, history of closed head injury, hypertension and diabetes was admitted with strokelike symptoms which resolved since admission and did not have any new neurological symptoms. She was evaluated by telemetry neuro medicine and also [facility] neurologist and apparent imaging studies including MRA and MRI did not show any stroke. She was hemodynamically stable without any significant lab abnormalities and was discharged home today with stable condition. By CMS guidelines, a determination that the admission or continued stay is not medically necessary has been made by a member of the UR committee and a physician for this hospital stay, therefore a Code 44 will be completed and the Inpatient admission will be changed to outpatient. Dr Rolando Lagunas Member UR Committee
[2020-04-02 06:13] LABS: Estimated Average Glucose 157 mg/dl; Hemoglobin A1C 7.1 % (4.5-5.6)
[2020-04-02] MEDS ORDERED: ASPIRIN 81 MG CHEW PO SCH (09:00)
[2020-04-04] MEDS ORDERED: metHOTREXate sodium 2.5 MG TAB PO SCH (09:00)
== END 2020-04-01 13:30 | disposition home or self-care (01) ==
LOC: INTOOBSV 12:09 → SUATTDRO 12:09 → 2S 12:09

== ENCOUNTER 2022-04-14 13:14 | Inpatient (IN) ==
--- NOTE | 2022-04-14 14:57 | XRay Report ---
XR tibia fibula RT 2V CLINICAL HISTORY: R leg wound TECHNIQUE: 2 radiographic views of the right leg were obtained. Comparison: None available at the time of this dictation. FINDINGS: No focal erosions are seen to suggest osteomyelitis. Joint spaces are well-preserved. Vascular calcif ications are seen. IMPRESSION: No evidence of focal erosion to suggest abscess. ACT 112: Negative or not required by law. Electronically signed by: Jacob Sargent M.D. 04/14/2022 2:56 PM
[2022-04-14 16:14] LABS: Basophils # (auto) 0.06 K/uL (0-0.2); Basophils % (auto) 0.7 %; Eosinophils # (auto) 0.43 K/uL (0-0.50); Eosinophils % (auto) 5.3 %; Hematocrit (blood only) 37.7 % (34.1-44.9); Hemoglobin 12.2 g/dl (12.0-16.0); Immature Granulocytes # (auto) 0.02 K/uL (0.00-0.02); Immature Granulocytes % (auto) 0.2 %; Lymphocytes # (auto) 2.26 K/uL (1.2-3.4); Lymphocytes % (auto) 27.7 %; Mean Corpuscular Hemoglobin 29.3 pg (25.0-34.0); Mean Corpuscular Hgb Conc 32.4 g/dL (32.0-36.0); Mean Corpuscular Volume 90.6 fL (80.0-100.0); Mean Platelet Volume 10.9 fL (9.4-12.3); Monocytes # (auto) 0.69 K/uL (0.24-0.82); Monocytes % (auto) 8.4 %; Neutrophils # (auto) 4.71 K/uL (1.4-6.5); Neutrophils % (auto) 57.7 %; Platelet Count 312 K/uL (130-400); RDW Standard Deviation 53.1 fL (36.4-46.3); Red Blood Count 4.16 M/uL (3.93-5.22); White Blood Count 8.17 K/ul (4.8-10.8)
[2022-04-14 16:41] LABS: Albumin Globulin Ratio 1.1 (0.9-2); Albumin Level 3.7 gm/dl (3.4-5.0); BUN Creatinine Ratio 32.4 (10-20); Bilirubin,Total 0.4 mg/dl (0.2-1.0); Calcium 9.1 mg/dl (8.5-10.1); Creatinine Clr Calc Pharmacy 68.2 ml/min; Est GFR (African American) 97.9 ml/min; Est GFR (Non-African American) 84.5 ml/min; Globulin 3.3 gm/dl (2.5-4.0); Potassium 4.7 mmol/L (3.5-5.1)
--- NOTE | 2022-04-14 16:43 | Emergency Department Note ---
History of Present Illness General Chief complaint: Infection, Wound Stated complaint: RIGHT LEG WOUND RE-CHECK Time Seen by Provider: 04/14/22 14:03 History of Present Illness Maximum Pain Intensity: 8 This is a 72-year-old female that presents to the emergency department via private vehicle with complaints of "right leg wound". Patient notes that for several months now she has been experiencing a wound to the right anterior shepherd region. She denies any known trauma or injury. She has been following with Dr. Rosa at [facility]. Patient's family at bedside provides silvana todocumentation of her wound progression since it started. It appears that this started a few months ago and ended up seeing wound care and then through wound care had surgical intervention to the wound performed on March 25, 2022. Patient notes that she has been following with wound care since that time and has a follow-up scheduled for this coming but also they reached out to a new wound care center here in [address] and have an appointment also for . They were recommended to present here with any worsening symptoms and patient was concerned therefore prompting arrival. Patient notes increased green drainage from the wound as well as increased pain over the past few days. They also noted a foul smell to the wound. Patient currently on oral doxycycline which was started this past Thursday. Patient also notes rash to her extremities and itching which has been ongoing for several months as well. She is scheduled to see dermatology tomorrow. Patient denies any fevers or chills. Current pain 8/10. She did have acetaminophen prior to arrival for pain. Home Medications Medication Instructions Recorded Confirmed Type cholecalciferol (vitamin D3) 25 1,000 unit PO QAM 03/21/20 04/14/22 History mcg (1,000 unit) tablet methotrexate sodium 2.5 mg tablet 20 mg PO WK 03/21/20 04/14/22 History aspirin 81 mg tablet,delayed 81 mg PO QAM 03/12/21 04/14/22 History release (Sergio Low Dose Aspirin) ascorbic acid (vitamin C) 500 mg 500 mg PO DAILY 04/14/22 04/14/22 History tablet (Vitamin C) atorvastatin 20 mg tablet 20 mg PO DAILY 04/14/22 04/14/22 History betamethasone dipropionate 0.05 % 1 applic topical BID PRN ECZEMA 04/14/22 04/14/22 History topical ointment FLARE UPS doxycycline hyclate 100 mg capsule 100 mg PO BID 04/14/22 04/14/22 History fluticasone propionate 50 2 spray intranasal DAILY PRN 04/14/22 04/14/22 History mcg/actuation nasal Congestion spray,suspension hydroxychloroquine 200 mg tablet 400 mg PO HS 04/14/22 04/14/22 History loratadine 10 mg tablet (Claritin) 10 mg PO DAILY PRN Congestion 04/14/22 04/14/22 History lorazepam 0.5 mg tablet 0.5 mg PO TID PRN Anxiety 04/14/22 04/14/22 History multivitamin with minerals-folic 2 tab PO DAILY 04/14/22 04/14/22 History acid 200 mcg chewable tablet (Adult Multivitamin Gummies) nortriptyline 50 mg capsule 50 mg PO HS 04/14/22 04/14/22 History pantoprazole 20 mg tablet,delayed 20 mg PO DAILY 04/14/22 04/14/22 History release (Protonix) Allergies Allergy/AdvReac Type Severity Reaction Status Date / Time infliximab Allergy Severe SHORTNESS Verified 04/14/22 17:26 OF BREATH adhesive Allergy Mild Rash Verified 04/14/22 17:26 iodine Allergy Mild Rash Verified 04/14/22 17:26 Penicillins Allergy Unknown Unknown Verified 04/14/22 17:26 clindamycin AdvReac Intermediate Diarrhea Verified 04/14/22 17:26 Sulfa (Sulfonamide AdvReac Intermediate GI Verified 04/14/22 17:26 Antibiotics) UPSET/DIARRHEA Past Med/Surg History Medical History Anxiety Diabetes diet controlled Dyslipidemia Essential tremor GERD (gastroesophageal reflux disease) History of sleep apnea prior to gastric bypass---no device currently Hypertension Osteoporosis Polyneuropathy Rheumatoid arthritis Right facial numbness Stasis dermatitis Stroke-like symptoms ? TIA happened 03/2020--CT scans at [facility] no findings---no further issues/no neurologist Vitamin D deficiency Surgical History H/O gastric bypass History of anesthesia reaction during panniculectomy in 2007 @ [facility] pt states she was under anesthesia for 7 hours and ended up with fluid in her lungs and had to be vented and in the ICU for roughly 5 days---pt states no other issues with anesthesia History of bilateral tubal ligation History of cataract surgery RT History of cholecystectomy History of colonoscopy History of tooth extraction all top teeth removed History of total hysterectomy with bilateral salpingo-oophorectomy (BSO) Status post panniculectomy Status post trigger finger release Family History Mother Alzheimer disease Sister Breast cancer Son Coronary heart disease Father COPD (chronic obstructive pulmonary disease) Daughter Factor V Leiden Other No family history of adverse response to anesthesia Social History Smoking Status: Current every day smoker Tobacco Type: Cigarettes Cigarettes Per Day: 10 a day; Second Hand Exposure: No; Hx Alcohol Use: Yes Alcohol type: beer Hx Substance Use: No Preferred Language: Kittitian Communication Ability: Effective Sausage Linker Required: No Beliefs That Will Affect Care: None Current Living Situation: Family Current Living Situation Comment: Lives with daughter Feels Safe at Home: Yes Assistive Devices: Denture - Upper and Glasses Review of Systems A total of 10 systems reviewed and were otherwise negative Physical Exam Vital Signs Vital Signs - 24 hr 04/14/22 13:35 Temperature 36.8 C Temperature Source Skin Pulse Rate 88 Pulse Rhythm Regular Pulse Strength Normal Respiratory Rate 20 Respiratory Effort / Characteristics Non-Labored Spontaneous Respiratory Depth Normal Respiratory Pattern Regular Blood Pressure 101/70 Blood Pressure Mean 80 Pulse Oximetry 97 Oxygen Delivery Method Room Air Sepsis Recent Fever Within 48 Hours No Sepsis New/Unexplained Change in Mental Status N/A Sepsis Action Taken by Nursing No Action Required VITAL SIGNS - Vital signs and nursing notes were reviewed. Stable and afebrile. GENERAL -72-year-old female appearing her stated age who is in no acute distress. Communicates well with provider and answers questions appropriately. SKIN -overlying the right lower extremity, specifically overlying the pretibial soft tissues in the mid pretibial region there is a wound that traverses the epidermis, dermis and into the subcutaneous tissues. This is a chronic appearing wound with underlying biofilm that is yellow in nature and at the dependent portion of the wound channel favoring the lateral aspect there is a greenish film noted with drainage. There is surrounding granulation tissue. There are 4 visible sutures present in the wound channel that are blue. Very minimal erythema to the area without any lymphangitic streaking or fluctuance. No crepitus. HEAD - NC/AT. EYES -sclera anicteric LUNGS -clear to auscultation CARDIAC -regular rate and rhythm. EXTREMITIES - No clubbing or peripheral cyanosis. No pretibial edema present. Skin as above. Patient well-perfused in the right lower extremity. No deficits. +5/5 strength noted in UE/LE bilaterally. NEUROLOGIC -patient is sensory intact throughout the right lower extremity without deficit. PSYCH - A&O, and cooperates fully with examiner. Pt is very pleasant and interacts well with examiner. Course Administered Medications Discontinued Medications Cefepime HCl (Maxipime) 2,000 mg in 20 mls @ 5 mls/min IV NOW STA; Protocol Stop: 04/14/22 17:05 Last Admin: 04/14/22 17:44 Dose: 5 mls/min Documented By: NM Medical Decision Making Laboratory Data 04/14/22 15:43 04/14/22 15:43 Lab Results 04/14/22 04/14/22 04/14/22 Range/Units 15:43 15:43 15:43 WBC 8.17 (4.8-10.8) K/ul RBC 4.16 (3.93-5.22) M/uL Hgb 12.2 (12.0-16.0) g/dl Hct 37.7 (34.1-44.9) % MCV 90.6 (80.0-100.0) fL MCH 29.3 (25.0-34.0) pg MCHC 32.4 (32.0-36.0) g/dL RDW Std Deviation 53.1 H (36.4-46.3) fL RDW Coeff of Doroteo 16.0 H (11.5-14.5) % Plt Count 312 (130-400) K/uL MPV 10.9 (9.4-12.3) fL Immature Gran % (Auto) 0.2 % Neut % (Auto) 57.7 % Lymph % (Auto) 27.7 % Ware % (Auto) 8.4 % Eos % (Auto) 5.3 % Baso % (Auto) 0.7 % Neut # (Auto) 4.71 (1.4-6.5) K/uL Lymph # (Auto) 2.26 (1.2-3.4) K/uL Ware # (Auto) 0.69 (0.24-0.82) K/uL Eos # (Auto) 0.43 (0-0.50) K/uL Baso # (Auto) 0.06 (0-0.2) K/uL Immature Gran # (Auto) 0.02 (0.00-0.02) K/uL Sodium 138 (136-145) mmol/L Potassium 4.7 (3.5-5.1) mmol/L Chloride 107 (98-107) mmol/L Carbon Dioxide 24 (21-32) mmol/L Anion Gap 7 (3-11) BUN 23 (6-23) mg/dl Creatinine 0.71 (0.6-1.2) mg/dl Est Cr Clr Drug Dosing 68.2 ml/min Est GFR ( Amer) 97.9 ml/min Est GFR (Non-Af Amer) 84.5 ml/min BUN/Creatinine Ratio 32.4 H (10-20) Glucose 84 (70-99(Fasting)) mg/dl Calcium 9.1 (8.5-10.1) mg/dl Total Bilirubin 0.4 (0.2-1.0) mg/dl AST 19 (13-39) U/L ALT 14 (7-52) U/L Alkaline Phosphatase 94 (34-104) U/L Total Protein 7.0 (6.0-8.3) gm/dl Albumin 3.7 (3.4-5.0) gm/dl Globulin 3.3 (2.5-4.0) gm/dl Albumin/Globulin Ratio 1.1 (0.9-2) Procalcitonin < 0.05 (0-0.5) ng/ml SARS-CoV-2, RNA, NAAT (NEGATIVE) 04/14/22 Range/Units Unknown WBC (4.8-10.8) K/ul RBC (3.93-5.22) M/uL Hgb (12.0-16.0) g/dl Hct (34.1-44.9) % MCV (80.0-100.0) fL MCH (25.0-34.0) pg MCHC (32.0-36.0) g/dL RDW Std Deviation (36.4-46.3) fL RDW Coeff of Doroteo (11.5-14.5) % Plt Count (130-400) K/uL MPV (9.4-12.3) fL Immature Gran % (Auto) % Neut % (Auto) % Lymph % (Auto) % Ware % (Auto) % Eos % (Auto) % Baso % (Auto) % Neut # (Auto) (1.4-6.5) K/uL Lymph # (Auto) (1.2-3.4) K/uL Ware # (Auto) (0.24-0.82) K/uL Eos # (Auto) (0-0.50) K/uL Baso # (Auto) (0-0.2) K/uL Immature Gran # (Auto) (0.00-0.02) K/uL Sodium (136-145) mmol/L Potassium (3.5-5.1) mmol/L Chloride (98-107) mmol/L Carbon Dioxide (21-32) mmol/L Anion Gap (3-11) BUN (6-23) mg/dl Creatinine (0.6-1.2) mg/dl Est Cr Clr Drug Dosing ml/min Est GFR ( Amer) ml/min Est GFR (Non-Af Amer) ml/min BUN/Creatinine Ratio (10-20) Glucose (70-99(Fasting)) mg/dl Calcium (8.5-10.1) mg/dl Total Bilirubin (0.2-1.0) mg/dl AST (13-39) U/L ALT (7-52) U/L Alkaline Phosphatase (34-104) U/L Total Protein (6.0-8.3) gm/dl Albumin (3.4-5.0) gm/dl Globulin (2.5-4.0) gm/dl Albumin/Globulin Ratio (0.9-2) Procalcitonin (0-0.5) ng/ml SARS-CoV-2, RNA, NAAT NEGATIVE (NEGATIVE) Imaging Data Radiologist's Impression: Tibia/Fibula X-Ray 04/14/22 14:34 XR tibia fibula RT 2V CLINICAL HISTORY: R leg wound TECHNIQUE: 2 radiographic views of the right leg were obtained. Comparison: None available at the time of this dictation. FINDINGS: No focal erosions are seen to suggest osteomyelitis. Joint spaces are well- preserved. Vascular calcifications are seen. IMPRESSION: No evidence of focal erosion to suggest abscess. ACT 112: Negative or not required by law. Electronically signed by: Jacob Sargent M.D. 04/14/2022 2:56 PM MDM Narrative Patient was seen and evaluated as above in room D06. Review was performed of triage nursing notes and vital signs. After obtaining a thorough history and physical examination the above work up was performed. Patient presents to us today with an ongoing and now worsening wound to the right lower extremity. There is a green discharge from the wound channel and increasing pain. She is on doxycycline and has been for the past few days. Patient overall clinically well-appearing and nontoxic. She has stable vital signs. Options of care were discussed with the patient. IV access was established. Labs were draw. No leukocytosis or concerning anemia. No emergent metabolic disturbance. Pro-Jose Roberto undetectable. X-ray was obtained and negative for emergent process. There does appear to be some underlying mid anterior tibial abnormality present on the x-ray however I did review previous x-rays in the [facility] record and this appears to be chronic and not new. I also reviewed the MRI that the patient underwent on 02/21/2022 that did not reveal any evidence of osteomyelitis at the wound location. I discussed options in regard to inpatient versus outpatient management with the patient and family member at bedside. At this time with the patient having worsening pain, increased green drainage from the wound in the setting of current oral antibiotic use at this time through shared decision making we will proceed with inpatient management for IV antibiotics. Concern is for possible infection within the wound. I did order the initial component of IV antibiotics for additional coverage. IV cefepime was ordered. I will note that she has tolerated cephalosporins previously without issue. Patient amenable to trying the antibiotic. It was felt that the benefit outweighed risk. Patient already on MRSA coverage via doxycycline. Wound culture obtained. Blood cultures obtained. Case discussed with the hospitalist service. Please refer to further documentation regarding her stay. GCS: 15 In the evaluation and treatment of this patient the following differential diagnoses were entertained: Cellulitis, abscess, necrotizing fasciitis, osteomyelitis, among others. Impression & Plan Wound of right lower extremity, Leg pain, right Discharge Plan Visit Data Chief Complaint: Infection, Wound Stated Complaint: RIGHT LEG WOUND RE-CHECK ED Provider: Alessio Schmid ED Midlevel Provider: Eduardo Allen Discharge Problem: Wound of right lower extremity, Leg pain, right Patient Disposition: Admitted As Inpatient Condition: Good Forms Stand Alone Forms: My [facility] Prescriptions Prescriptions: No Action methotrexate sodium 2.5 mg tablet 20 mg PO WK Rx Instructions: ON HOLD TAKE EIGHT TABLETS ONCE A WEEK ON WEDNESDAYS cholecalciferol (vitamin D3) 25 mcg (1,000 unit) Tablet 1,000 unit PO QAM doxycycline hyclate 100 mg capsule 100 mg PO BID Rx Instructions: STARTED 04/11/22 FOR 10 DAYS. atorvastatin 20 mg Tablet 20 mg PO DAILY pantoprazole [Protonix] 20 mg Tablet,Delayed Release (Dr/Ec) 20 mg PO DAILY lorazepam 0.5 mg tablet 0.5 mg PO TID PRN (Reason: Anxiety) ascorbic acid (vitamin C) [Vitamin C] 500 mg Tablet 500 mg PO DAILY hydroxychloroquine 200 mg tablet 400 mg PO HS betamethasone dipropionate 0.05 % Ointment 1 applic TOPICAL BID PRN (Reason: ECZEMA FLARE UPS) fluticasone propionate [Flonase] 50 mcg/actuation [place],Suspension 2 spray INTRANASAL DAILY PRN (Reason: Congestion) Rx Instructions: administer into each nostril loratadine [Claritin] 10 mg Tablet 10 mg PO DAILY PRN (Reason: Congestion) nortriptyline 50 mg capsule 50 mg PO HS Adult Multivitamin Gummies 200 mcg Tablet,Chewable 2 tab PO DAILY aspirin [Sergio Low Dose Aspirin] 81 mg Tablet,Delayed Release (Dr/Ec) 81 mg PO QAM Referrals Referrals: Sirena Lozano MD [Primary Care Provider] -
[2022-04-14] MEDS ORDERED: CEFEPIME 2,000 MG/20 ML VIAL IV STA (17:02)
--- NOTE | 2022-04-14 17:36 | History & Physical Report ---
Date of Service April 14, 2022 Assessment & Plan (1) Chronic ulcer of right lower extremity: Plan: 72 y/o female with history of RA, has been on methotrexate although currently on hold due to non-healing wound of RLE which has been present x 6 months. Pt has undergone multiple outpatient debridements and most recently debridement in the OR on 03/25/22. She has been on multiple course of antibiotics including doxycycline, cephalexin, and now doxycycline again. No prior wound culture collected that I can find in her records or that patient recalls. Now presenting with worsening pain and change in drainage concerning for infection. - Admit to med surg for additional evaluation and IV antibiotics - Continue cefepime and doxycycline for now - consult infectious disease for additional recommendations. Wound culture pending that was collected in the ED - Consult wound care nurse - Consult podiatry - Pt prefers to avoid oxycodone/narcotics for pain as much as possible, no real relief with Tylenol/ibuprofen so will try Tramadol prn while admitted (2) Infected wound: Plan: See plan for #1 (3) Rheumatoid arthritis: Plan: Methotrexate currently on hold due to non-healing wound. Still on hydroxychloroquine, which will be continued. Not currently taking prednisone (4) Diabetes: Plan: Diet-controlled since gastric bypass. Most recent A1c was 6.7 on 01/10/22 - Recheck A1c - if persistently elevated, may need to add medication. Metformin was added in January but pt did not tolerate - Diabetic diet (5) Hypertension: Plan: BP has been improved after gastric bypass - currently well-controlled (6) Anxiety: (7) Dyslipidemia: (8) GERD (gastroesophageal reflux disease): Plan: Continue PPI therapy Plan Continue other home medications as appropriate. Pt seen and reviewed with attending physician, Dr. Schafer. Plan of care discussed and as outlined above. Code Status: Full Code DVT Prophylaxis: SubQ heparin Sonya Ramires PA-C History of Present Illness Chief Complaint: Wound infection Primary Care Provider: Sirena Lozano MD This is a 72 y/o female with a PMH of RA, DM2 with associated polyneuropathy, stasis dermatitis, prior TIA, dyslipidemia, GERD, osteoporosis, essential tremor and anxiety who presented to the ED today with worsening pain and drainage associated with chronic RLE wound. Pt developed this right lower extremity wound around October - developed infection in end of Dec. Saw PCP early January and was treated with doxycycline without significant improvement. Referred to wound clinic at [facility] and seen 02/05/22 for initial evaluation. Given wound care instructions and recommended to follow through with outpatient MRI to rule out osteomyelitis. MRI of tib/fib done on 02/20/22 and was negative for osteomyelitis. Seen again by PCP office on 02/24/22 who started her on a 10 day course of cephalexin. PCP discussed pt with rheumatology who agreed that pt should hold methotrexate until lesions resolves. Pt continued to follow with wound care and underwent multiple debridements in the office. On 03/25/22 she underwent debridement in the OR with placement of a wound VAC. Has continued to follow with wound care but pt/family unhappy with care and were requesting a second opinion with [facility] wound care clinic. This appointment has not yet been scheduled. Pt reports that the wound VAC was on for about a week after the OR procedure. Since then, family has been doing wet to dry dressings. She was started on doxycycline again on 04/11/21. Over the last 2-3 days, she has noted increasing pain in the RLE - taking Tylenol and ibuprofen intermittent for the pain but doesn't feel like it's helping. Prefers to avoid taking oxycodone. She also notes a chance in the color of the drainage from yellow to green although it has decreased in amount since they stopped using compression dressings. It has a foul odor to it but that is unchanged. [facility] due to the complicated nature of her clinical course. No wound culture was noted on file, and pt does not recall any being collected. Allergies Allergy/AdvReac Type Severity Reaction Status Date / Time infliximab Allergy Severe SHORTNESS Verified 04/14/22 17:26 OF BREATH adhesive Allergy Mild Rash Verified 04/14/22 17:26 iodine Allergy Mild Rash Verified 04/14/22 17:26 Penicillins Allergy Unknown Unknown Verified 04/14/22 17:26 clindamycin AdvReac Intermediate Diarrhea Verified 04/14/22 17:26 Sulfa (Sulfonamide AdvReac Intermediate GI Verified 04/14/22 17:26 Antibiotics) UPSET/DIARRHEA Home Medications Medication Instructions Recorded Confirmed Type cholecalciferol (vitamin D3) 25 1,000 unit PO QAM 03/21/20 04/14/22 History mcg (1,000 unit) tablet methotrexate sodium 2.5 mg tablet 20 mg PO WK 03/21/20 04/14/22 History aspirin 81 mg tablet,delayed 81 mg PO QAM 03/12/21 04/14/22 History release (Sergio Low Dose Aspirin) ascorbic acid (vitamin C) 500 mg 500 mg PO DAILY 04/14/22 04/14/22 History tablet (Vitamin C) atorvastatin 20 mg tablet 20 mg PO DAILY 04/14/22 04/14/22 History betamethasone dipropionate 0.05 % 1 applic topical BID PRN ECZEMA 04/14/22 04/14/22 History topical ointment FLARE UPS doxycycline hyclate 100 mg capsule 100 mg PO BID 04/14/22 04/14/22 History fluticasone propionate 50 2 spray intranasal DAILY PRN 04/14/22 04/14/22 History mcg/actuation nasal Congestion spray,suspension hydroxychloroquine 200 mg tablet 400 mg PO HS 04/14/22 04/14/22 History loratadine 10 mg tablet (Claritin) 10 mg PO DAILY PRN Congestion 04/14/22 04/14/22 History lorazepam 0.5 mg tablet 0.5 mg PO TID PRN Anxiety 04/14/22 04/14/22 History multivitamin with minerals-folic 2 tab PO DAILY 04/14/22 04/14/22 History acid 200 mcg chewable tablet (Adult Multivitamin Gummies) nortriptyline 50 mg capsule 50 mg PO HS 04/14/22 04/14/22 History pantoprazole 20 mg tablet,delayed 20 mg PO DAILY 04/14/22 04/14/22 History release (Protonix) Past Med/Surg History Medical History Anxiety Diabetes diet controlled Dyslipidemia Essential tremor GERD (gastroesophageal reflux disease) History of sleep apnea prior to gastric bypass---no device currently Hypertension Osteoporosis Polyneuropathy Rheumatoid arthritis Right facial numbness Stasis dermatitis Stroke-like symptoms ? TIA happened 03/2020--CT scans at [facility] no findings---no further issues/no neurologist Vitamin D deficiency Surgical History H/O gastric bypass History of anesthesia reaction during panniculectomy in 2007 @ [facility] [place] pt states she was under anesthesia for 7 hours and ended up with fluid in her lungs and had to be vented and in the ICU for roughly 5 days---pt states no other issues with anesthesia History of bilateral tubal ligation History of cataract surgery RT History of cholecystectomy History of colonoscopy History of tooth extraction all top teeth removed History of total hysterectomy with bilateral salpingo-oophorectomy (BSO) Status post panniculectomy Status post trigger finger release Family History Mother Alzheimer disease Sister Breast cancer Son Coronary heart disease Father COPD (chronic obstructive pulmonary disease) Daughter Factor V Leiden Other No family history of adverse response to anesthesia Social History Smoking Status: Current every day smoker Tobacco Type: Cigarettes Cigarettes Per Day: 10 a day; Second Hand Exposure: No; Hx Alcohol Use: Yes Alcohol type: beer Hx Substance Use: No Preferred Language: Occitan Communication Ability: Effective Medical Doctor Required: No Beliefs That Will Affect Care: None Current Living Situation: Family Current Living Situation Comment: Lives with daughter Feels Safe at Home: Yes Assistive Devices: Denture - Upper and Glasses Review of Systems Review of Systems: All systems reviewed & are unremarkable except as noted in HPI & below Constitutional: + malaise and + anorexia; no fever and no chills Eyes: no diplopia and no worsening vision Ear, Nose, Mouth, Throat: no sore throat and no dysphagia Respiratory: no cough and no dyspnea Cardiovascular: + edema; no chest pain and no palpitations Gastrointestinal: + constipation and + problem reported (issues with hemorrhoids related to constipation); no abdominal pain, no nausea and no vomiting Genitourinary: no dysuria and no hematuria Musculoskeletal: + problem reported (RLE pain, increased RA symptoms) Integumentary: + rash (x 6 months) and + pruritus Neurologic: + headache(s); no dizziness Psychiatric: + anxiety; no depression Physical Exam Constitutional: well developed and well nourished; no acute distress Eyes: + anicteric sclerae Neck: trachea midline Respiratory: no respiratory distress and no labored breathing Auscultation: lungs clear to auscultation bilaterally; no rales, no rhonchi and no wheezes Cardiovascular: Rate/Rhythm: regular rate and regular rhythm Vessels: posterior tibial pulses present and radial pulses present trace LE edema bilaterally Gastrointestinal (Abdomen): Inspection/Auscultation: normal bowel sounds; abdo men not distended Percussion/Palpation: abdomen soft; abdomen nontender Musculoskeletal: bilateral hands with deformities c/w known RA, mildly edematous Skin: right anterior shepherd with ~7 cm wound - sutures still in place at ends. +purulent green slough in wound but not otherwise draining, mild associated erythema. tender to light pressure Neurologic: moves all extremities; no focal motor deficits and not confused Psychiatric: A+Ox3, euthymic affect Results & Data Results & Data ([facility]) Vital Signs (Past 12 Hours) Vital Signs Temp Pulse Resp BP Pulse Ox O2 Del Method 04/14/22 13:35 36.8 C 88 20 101/70 97 Room Air Laboratory Results Laboratory Results - last 24 hr 04/14/22 04/14/22 04/14/22 15:43 15:43 15:43 WBC 8.17 RBC 4.16 Hgb 12.2 Hct 37.7 MCV 90.6 MCH 29.3 MCHC 32.4 RDW Std Deviation 53.1 H RDW Coeff of Doroteo 16.0 H Plt Count 312 MPV 10.9 Immature Gran % (Auto) 0.2 Neut % (Auto) 57.7 Lymph % (Auto) 27.7 [place] % (Auto) 8.4 Eos % (Auto) 5.3 Baso % (Auto) 0.7 Neut # (Auto) 4.71 Lymph # (Auto) 2.26 [place] # (Auto) 0.69 Eos # (Auto) 0.43 Baso # (Auto) 0.06 Immature Gran # (Auto) 0.02 Sodium 138 Potassium 4.7 Chloride 107 Carbon Dioxide 24 Anion Gap 7 BUN 23 Creatinine 0.71 Est Cr Clr Drug Dosing 68.2 Est GFR ( Amer) 97.9 Est GFR (Non-Af Amer) 84.5 BUN/Creatinine Ratio 32.4 H Glucose 84 Calcium 9.1 Total Bilirubin 0.4 AST 19 ALT 14 Alkaline Phosphatase 94 Total Protein 7.0 Albumin 3.7 Globulin 3.3 Albumin/Globulin Ratio 1.1 Procalcitonin < 0.05 SARS-CoV-2, RNA, NAAT 04/14/22 Unknown WBC RBC Hgb Hct MCV MCH MCHC RDW Std Deviation RDW Coeff of Doroteo Plt Count MPV Immature Gran % (Auto) Neut % (Auto) Lymph % (Auto) [place] % (Auto) Eos % (Auto) Baso % (Auto) Neut # (Auto) Lymph # (Auto) [place] # (Auto) Eos # (Auto) Baso # (Auto) Immature Gran # (Auto) Sodium Potassium Chloride Carbon Dioxide Anion Gap BUN Creatinine Est Cr Clr Drug Dosing Est GFR ( Amer) Est GFR (Non-Af Amer) BUN/Creatinine Ratio Glucose Calcium Total Bilirubin AST ALT Alkaline Phosphatase Total Protein Albumin Globulin Albumin/Globulin Ratio Procalcitonin SARS-CoV-2, RNA, NAAT Pending Diagnostic Findings Right Tibia/Fibula X-ray 04/14/22 - IMPRESSION: No evidence of focal erosion to suggest abscess. MRI Right Tibia/Fibula on 02/20/22 - IMPRESSION 1. Soft tissue wound and cellulitis at the anteromedial aspect of the right lower leg, with no evidence of underlying osteomyelitis. 2. Moderate tibiotalar cartilage loss, with subchondral bone marrow edema and a small enhancing joint effusion. These findings are expected in the setting of osteoarthritis, though superimposed septic arthritis cannot be excluded in the appropriate clinical setting. Medications Administered Discontinued Medications Cefepime HCl (Maxipime) 2,000 mg in 20 mls @ 5 mls/min IV NOW STA; Protocol Stop: 04/14/22 17:05 Last Admin: 04/14/22 17:44 Dose: 5 mls/min Documented By: [place] Supervising Physician Co-Signing Physician Notes 72-year-old lady with PMH of RA on Plaquenil [recently methotrexate discontinued 6 weeks ago] presented with nonhealing wound of RLE. Per patient there was a " hard dark roscoe" on anterior since of right lower extremity which fell off in October and then developed a yellowish discoloration in December of last year and hence has been on multiple course of antibiotics doxycycline followed by cephalexin followed by currently on doxycycline. Patient reports worsening pain lately. RLE imaging with no evidence of abscess or osteomyelitis. Labs reviewed and fairly WNL. Patient started on cefepime in the ED, will continue. Add doxycycline. Get A1c. Wound culture. Blood culture. Podiatry and infectious disease consult. Wound care consult. Upon Exam: GENERAL: Alert and oriented x3. NAD, on RA. HEENT: No pallor, no icterus. Pupils equal, round and reactive to light. Oral mucosa moist. NECK: No JVD, no neck masses. HEART: S1 and S2 heard. Regular rate and rhythm. No murmur, no gallop. RESPIRATORY SYSTEM: Normal AP diameter. No accessory muscle use. No wheezing, no crackles. ABDOMEN: Soft, bowel sounds present, nontender, no distention. CENTRAL NERVOUS SYSTEM: No facial droop. Speech is clear. Obeys simple commands. Moves extremities. EXTREMITIES: Rt shepherd w/ approx 7 CM infected linear wound w/ pus. I have seen and examined the patient and have discussed the case with the provider above. I agree with the assessment and plan as stated. (1) Hypertension Hypertension type: unspecified Qualified Code(s): I10 - Essential (primary) hypertension
[2022-04-14] MEDS ORDERED: traMADol HCL 50 MG TABLET ONE (19:24)
[2022-04-14] MEDS ORDERED: FLUTICASONE PROPIONATE NA SPR 16 GM BTL PRN (21:59)
[2022-04-14] MEDS ORDERED: LORATADINE 10 MG TAB PO PRN (21:59)
[2022-04-14] MEDS: hydrOXYzine HCl 10 MG TAB PO PRN (22:52)
[2022-04-14] MEDS: NORTRIPTYLINE HCL 25 MG CAP PO SCH (22:52)
[2022-04-14] MEDS: HYDROXYCHLOROQUINE SULFATE 200 MG TAB PO SCH (22:53)
[2022-04-14] MEDS: DOXYCYCLINE HYCLATE 100 MG in DEXTROSE 5% 100 ML IV SCH (22:53)
[2022-04-14] MEDS: HEPARIN SOD 5,000 UNIT/0.5 ML VIAL SQ SCH (22:53)
[2022-04-14] MEDS: ACETAMINOPHEN 325 MG TAB PO PRN (23:07)
[2022-04-14] MEDS: LORazepam 0.5 MG TAB PO PRN (23:17)
[2022-04-15] MEDS: CEFEPIME 2,000 MG in SYRINGE 0 ML IV SCH ×2 (05:25→17:08)
[2022-04-15] MEDS: traMADol HCL 50 MG TABLET PO PRN (05:25)
[2022-04-15 06:14] LABS: Basophils # (auto) 0.04 K/uL (0-0.2); Basophils % (auto) 0.5 %; Eosinophils # (auto) 0.39 K/uL (0-0.50); Eosinophils % (auto) 5.1 %; Hematocrit (blood only) 33.8 % (34.1-44.9); Hemoglobin 11.1 g/dl (12.0-16.0); Immature Granulocytes # (auto) 0.02 K/uL (0.00-0.02); Immature Granulocytes % (auto) 0.3 %; Lymphocytes # (auto) 3.28 K/uL (1.2-3.4); Lymphocytes % (auto) 43.1 %; Mean Corpuscular Hemoglobin 29.7 pg (25.0-34.0); Mean Corpuscular Hgb Conc 32.8 g/dL (32.0-36.0); Mean Corpuscular Volume 90.4 fL (80.0-100.0); Mean Platelet Volume 10.3 fL (9.4-12.3); Monocytes # (auto) 0.69 K/uL (0.24-0.82); Monocytes % (auto) 9.1 %; Neutrophils # (auto) 3.19 K/uL (1.4-6.5); Neutrophils % (auto) 41.9 %; Platelet Count 264 K/uL (130-400); RDW Coefficient of Variation 15.7 % (11.5-14.5); RDW Standard Deviation 51.7 fL (36.4-46.3); Red Blood Count 3.74 M/uL (3.93-5.22); White Blood Count 7.61 K/ul (4.8-10.8)
[2022-04-15 06:36] LABS: BUN Creatinine Ratio 31.9 (10-20); Calcium 8.8 mg/dl (8.5-10.1); Est GFR (African American) 100.1 ml/min; Est GFR (Non-African American) 86.4 ml/min; Potassium 4.3 mmol/L (3.5-5.1)
[2022-04-15 07:27] LABS: Estimated Average Glucose 128 mg/dl; Hemoglobin A1C 6.1 % (4.5-5.6)
[2022-04-15] MEDS: ATORVASTATIN 20 MG TAB PO SCH (07:37)
[2022-04-15] MEDS: CHOLECALCIFEROL 1,000 UNITS 25 MCG TAB PO SCH (07:37)
[2022-04-15] MEDS: HEPARIN SOD 5,000 UNIT/0.5 ML VIAL SQ SCH (07:38)
[2022-04-15] MEDS: PANTOprazole 40 MG TAB PO SCH (07:38)
[2022-04-15] MEDS: ASPIRIN 81 MG ECTAB PO SCH (07:38)
[2022-04-15] MEDS: ASCORBIC ACID 500 MG TAB PO SCH (07:38)
[2022-04-15] MEDS: DOXYCYCLINE HYCLATE 100 MG in DEXTROSE 5% 100 ML IV SCH ×2 (09:30→21:19)
[2022-04-15] MEDS: ACETAMINOPHEN 325 MG TAB PO PRN ×2 (14:57→21:21)
--- NOTE | 2022-04-15 16:23 | Podiatry Consultation ---
Date of Consultation April 15, 2022 Assessment & Plan (1) Infected wound: (2) Chronic ulcer of right lower extremity: Plan - Patient was examined and evaluated. - Discussed treatment options with patient, wound care nurse, and patient's daughter. - This wound is most likely to heal with wound care and secondary intention; she has previously failed primary closure, almost assuredly due to tension across the wound at the level of the tibia. - MRI is worthwhile, to rule-out chronic infection of the tibia. There are chronic changes to the bone density in the area of the wound on plain-film imaging. MRI results will be beneficial. - Discussed that this wound should be debrided sharply and extensively in the OR and she would benefit most from wound-vac therapy. D/w wound care nursing in house and they are in agreement. - Will work on scheduling for surgical debridement tomorrow or . Will obtain several pathology specimens and deep C&S, to help rule out infection and malignant transformation of the wound. - Will continue to follow. Thank you for the consult. We are always happy to help when possible. History of Present Illness Reason for Consultation: Right tibial wound Attending Physician: Jhonatan De Paz MD History of Present Illness Patient presents with worsening right tibial ulceration, present for the last few months. It has failed outpatient wound care, debridements, attempted primary closure, and even a brief vac-assisted closure after primary closure. She has a complex history of 50+ years of RA and associated medications as well as a more recent diagnosis of diabetes. She has been on insulin and medication, which has helped decrease her weight from over 300 lbs. Now, this wound has become more painful and infected recently, since her last attempted closure in mid March. She is doing well on hospitalization with no constitutional signs or symptoms of systemic infection. Allergies Allergy/AdvReac Type Severity Reaction Status Date / Time infliximab Allergy Severe SHORTNESS Verified 04/14/22 17:26 OF BREATH adhesive Allergy Mild Rash Verified 04/14/22 17:26 iodine Allergy Mild Rash Verified 04/14/22 17:26 Penicillins Allergy Unknown Unknown Verified 04/14/22 17:26 clindamycin AdvReac Intermediate Diarrhea Verified 04/14/22 17:26 Sulfa (Sulfonamide AdvReac Intermediate GI Verified 04/14/22 17:26 Antibiotics) UPSET/DIARRHEA Home Medications Medication Instructions Recorded Confirmed Type cholecalciferol (vitamin D3) 25 1,000 unit PO QAM 03/21/20 04/14/22 History mcg (1,000 unit) tablet methotrexate sodium 2.5 mg tablet 20 mg PO WK 03/21/20 04/14/22 History aspirin 81 mg tablet,delayed 81 mg PO QAM 03/12/21 04/14/22 History release (Sergio Low Dose Aspirin) ascorbic acid (vitamin C) 500 mg 500 mg PO DAILY 04/14/22 04/14/22 History tablet (Vitamin C) atorvastatin 20 mg tablet 20 mg PO DAILY 04/14/22 04/14/22 History betamethasone dipropionate 0.05 % 1 applic topical BID PRN ECZEMA 04/14/22 04/14/22 History topical ointment FLARE UPS doxycycline hyclate 100 mg capsule 100 mg PO BID 04/14/22 04/14/22 History fluticasone propionate 50 2 spray intranasal DAILY PRN 04/14/22 04/14/22 History mcg/actuation nasal Congestion spray,suspension hydroxychloroquine 200 mg tablet 400 mg PO HS 04/14/22 04/14/22 History loratadine 10 mg tablet (Claritin) 10 mg PO DAILY PRN Congestion 04/14/22 04/14/22 History lorazepam 0.5 mg tablet 0.5 mg PO TID PRN Anxiety 04/14/22 04/14/22 History multivitamin with minerals-folic 2 tab PO DAILY 04/14/22 04/14/22 History acid 200 mcg chewable tablet (Adult Multivitamin Gummies) nortriptyline 50 mg capsule 50 mg PO HS 04/14/22 04/14/22 History pantoprazole 20 mg tablet,delayed 20 mg PO DAILY 04/14/22 04/14/22 History release (Protonix) Patient History Medical History Anxiety Diabetes diet controlled Dyslipidemia Essential tremor GERD (gastroesophageal reflux disease) History of sleep apnea prior to gastric bypass---no device currently Hypertension Osteoporosis Polyneuropathy Rheumatoid arthritis Right facial numbness Stasis dermatitis Stroke-like symptoms ? TIA happened 03/2020--CT scans at [facility] no findings---no further issues/no neurologist Vitamin D deficiency Surgical History H/O gastric bypass History of anesthesia reaction during panniculectomy in 2008 @ [facility] [place] pt states she was under anesthesia for 7 hours and ended up with fluid in her lungs and had to be vented and in the ICU for roughly 5 days---pt states no other issues with anesthesia History of bilateral tubal ligation History of cataract surgery RT History of cholecystectomy History of colonoscopy History of tooth extraction all top teeth removed History of total hysterectomy with bilateral salpingo-oophorectomy (BSO) Status post panniculectomy Status post trigger finger release Family History Mother Alzheimer disease Sister Breast cancer Son Coronary heart disease Father COPD (chronic obstructive pulmonary disease) Daughter Factor V Leiden Other No family history of adverse response to anesthesia Social History Smoking Status: Current every day smoker Tobacco Type: Cigarettes Cigarettes Per Day: 3-4 per day; Second Hand Exposure: No; Hx Alcohol Use: Yes Alcohol type: beer Hx Substance Use: No Preferred Language: Upper Sorbian Communication Ability: Effective Camp Boss Required: No Beliefs That Will Affect Care: Samaritan Samaritan Beliefs: orthodoxy Current Living Situation: Family Current Living Situation Comment: no stairs to enter, 12 stairs inside Feels Safe at Home: Yes Safety Concerns: Feels Safe At This Time Assistive Devices: Cane Review of Systems Review of Systems: All systems reviewed & are unremarkable except as noted in HPI & below Physical Exam Physical Exam: Chronic, dry, ischemic appearing ulceration noted to anterior tibia. There is periwound erythema, largely fibrous base, with no obvious deep probing or tunneling under the wound border. No profound purulent drainage noted. Pain is noted on exam. Two retained prolene sutures noted distally to the wound. Wound images are noted elsewhere in the chart. Constitutional: WD/WN, vitals as above Eyes: PERRL, conjunctivae normal, anicteric sclerae ENMT: external ear and nose normal, oropharynx normal Neck: trachea midline, no thyromegaly Respiratory: normal respiratory effort, lungs clear to auscultation normal respiratory effort Cardiovascular: RRR, no murmur, no edema Rate/Rhythm: regular rate and regular rhythm Vessels: + posterior tibial pulses abnormal and + dorsalis pedis pulses abnormal Atrophic changes to feet with non-palpable pulses. Non- compressible arteries on arterial doppler to left lower extremity. VIRGIL of 0.7 on right. Gastrointestinal (Abdomen): Inspection/Auscultation: abdomen normal to inspection; abdomen not distended Musculoskeletal: no cyanosis or clubbing, extremities motor strength 5/5 Extremities: + limited ROM of extremities and strength 5/5 throughout Skin: + ulcer and + wound Psychiatric: A+Ox3, euthymic affect Results & Data ([facility]) Vital Signs (Past 12 Hours) Vital Signs Temp Pulse Resp BP Pulse Ox O2 Del Method 04/15/22 15:04 36.7 C 78 16 113/76 97 Room Air 04/15/22 08:18 111/74 04/15/22 07:20 36.5 C 78 16 92/61 L 94 Room Air
--- NOTE | 2022-04-15 20:22 | Hospitalist Progress Note ---
Date of Service April 15, 2022 Assessment & Plan (1) Chronic ulcer of right lower extremity: Plan: 72 y/o female with history of RA, has been on methotrexate although currently on hold due to non-healing wound of RLE which has been present x 6 months. Pt has undergone multiple outpatient debridements and most recently debridement in the OR on 03/25/22. She has been on multiple course of antibiotics including doxycycline, cephalexin, and now doxycycline again. No prior wound culture collected that I can find in her records or that patient recalls. Now presenting with worsening pain and change in drainage concerning for infection. -Will obtain MRI right leg w/wo contrast -Appreciate podiatry and ID input -plan for OR with podiatry for debridement -WOCN -currently on cefepime and doxycyline (2) Infected wound: Plan: See plan for #1 (3) Rheumatoid arthritis: Plan: Methotrexate currently on hold due to non-healing wound. Still on hydroxychloroquine, which will be continued. Not currently taking prednisone (4) Diabetes: Plan: Diet-controlled since gastric bypass. Most recent A1c was 6.7 on 01/10/22 - Recheck A1c - if persistently elevated, may need to add medication. Metformin was added in January but pt did not tolerate - Diabetic diet (5) Hypertension: Plan: BP has been improved after gastric bypass - currently well-controlled (6) Anxiety: (7) Dyslipidemia: (8) GERD (gastroesophageal reflux disease): Plan: Continue PPI therapy Plan Code Status: Full Code DVT Prophylaxis: SubQ heparin Admission and Anticipated Discharge Date Admission Date: April 14, 2022 Subjective No fevers, no chills Exquisite tenderness of right leg ulcer Physical Exam Physical Exam: Appears well, no acute distress Respiratory: Breathing comfortably on room air, no wheezing/rhonchi Cardiovascular: Regular rate and rhythm, no murmurs/rubs/gallops Gastrointestinal (Abdomen): soft, non tender Musculoskeletal: right leg with large non healing ulcer of tibia Neurologic: awake, alert, spontaneously moving extremities Results & Data Results & Data ([facility]) Vital Signs (Past 12 Hours) Vital Signs Temp Pulse Resp BP Pulse Ox O2 Del Method 04/15/22 15:04 36.7 C 78 16 113/76 97 Room Air (1) Hypertension Hypertension type: unspecified Qualified Code(s): I10 - Essential (primary) hypertension
[2022-04-15] MEDS: LORazepam 0.5 MG TAB PO PRN (21:18)
[2022-04-15] MEDS: NORTRIPTYLINE HCL 25 MG CAP PO SCH (21:19)
[2022-04-15] MEDS: HYDROXYCHLOROQUINE SULFATE 200 MG TAB PO SCH (21:19)
[2022-04-15] MEDS ORDERED: GADOBUTROL 65ML VIAL IV ONE (23:42)
[2022-04-16] MEDS: CEFEPIME 2,000 MG in SYRINGE 0 ML IV SCH ×2 (05:55→17:32)
[2022-04-16] MEDS ORDERED: SODIUM CHLORIDE 0.9% 1000ML 1,000 ML IV SCH (06:00)
[2022-04-16] MEDS: traMADol HCL 50 MG TABLET PO PRN ×2 (06:04→15:04)
[2022-04-16 06:06] LABS: Hematocrit (blood only) 35.6 % (34.1-44.9); Hemoglobin 11.9 g/dl (12.0-16.0); Mean Corpuscular Hemoglobin 29.9 pg (25.0-34.0); Mean Corpuscular Hgb Conc 33.4 g/dL (32.0-36.0); Mean Corpuscular Volume 89.4 fL (80.0-100.0); Mean Platelet Volume 11.6 fL (9.4-12.3); Platelet Count 262 K/uL (130-400); RDW Coefficient of Variation 15.5 % (11.5-14.5); RDW Standard Deviation 51.6 fL (36.4-46.3); Red Blood Count 3.98 M/uL (3.93-5.22)
[2022-04-16 06:55] LABS: BUN Creatinine Ratio 31.9 (10-20); Creatinine Clr Calc Pharmacy 67.1 ml/min; Est GFR (African American) 96.3 ml/min; Est GFR (Non-African American) 83.1 ml/min; Potassium 4.3 mmol/L (3.5-5.1)
[2022-04-16] MEDS: CHOLECALCIFEROL 1,000 UNITS 25 MCG TAB PO SCH (07:17)
[2022-04-16] MEDS: ASCORBIC ACID 500 MG TAB PO SCH (07:17)
[2022-04-16] MEDS: ASPIRIN 81 MG ECTAB PO SCH (07:18)
[2022-04-16] MEDS: ATORVASTATIN 20 MG TAB PO SCH (07:18)
[2022-04-16] MEDS: PANTOprazole 40 MG TAB PO SCH (07:18)
--- NOTE | 2022-04-16 07:25 | Anesthesiology Consultation ---
Date of Service April 16, 2022 Assessment & Plan (1) Encounter for pre-operative examination: Chart Review Chart Review: data entry analyst initiated History Surgery Operation Date: 04/16/22 07:00 Proposed Procedures p Right Tibial Ulcer Debridement - Ibeth Torres DPM Height/Weight Height: 5 ft 2 in Weight: 77.564 kg Allergies Allergy/AdvReac Type Severity Reaction Status Date / Time infliximab Allergy Severe SHORTNESS Verified 04/14/22 17:26 OF BREATH adhesive Allergy Mild Rash Verified 04/14/22 17:26 iodine Allergy Mild Rash Verified 04/14/22 17:26 Penicillins Allergy Unknown Unknown Verified 04/14/22 17:26 clindamycin AdvReac Intermediate Diarrhea Verified 04/14/22 17:26 Sulfa (Sulfonamide AdvReac Intermediate GI Verified 04/14/22 17:26 Antibiotics) UPSET/DIARRHEA Medications Home Medications Medication Instructions Recorded Confirmed Last Taken cholecalciferol (vitamin D3) 25 1,000 unit PO QAM 03/21/20 04/14/22 04/14/22 mcg (1,000 unit) tablet methotrexate sodium 2.5 mg tablet 20 mg PO WK 03/21/20 04/14/22 03/26/21 aspirin 81 mg tablet,delayed 81 mg PO QAM 03/12/21 04/14/22 04/14/22 release (Sergio Low Dose Aspirin) ascorbic acid (vitamin C) 500 mg 500 mg PO DAILY 04/14/22 04/14/22 04/14/22 tablet (Vitamin C) atorvastatin 20 mg tablet 20 mg PO DAILY 04/14/22 04/14/22 04/14/22 betamethasone dipropionate 0.05 % 1 applic topical BID PRN ECZEMA 04/14/22 04/14/22 Unknown topical ointment FLARE UPS doxycycline hyclate 100 mg capsule 100 mg PO BID 04/14/22 04/14/22 04/14/22 08:00 fluticasone propionate 50 2 spray intranasal DAILY PRN 04/14/22 04/14/22 04/14/22 mcg/actuation nasal Congestion spray,suspension hydroxychloroquine 200 mg tablet 400 mg PO HS 04/14/22 04/14/22 04/13/22 loratadine 10 mg tablet (Claritin) 10 mg PO DAILY PRN Congestion 04/14/22 04/14/22 Unknown lorazepam 0.5 mg tablet 0.5 mg PO TID PRN Anxiety 04/14/22 04/14/22 Unknown multivitamin with minerals-folic 2 tab PO DAILY 04/14/22 04/14/22 04/14/22 acid 200 mcg chewable tablet (Adult Multivitamin Gummies) nortriptyline 50 mg capsule 50 mg PO HS 04/14/22 04/14/22 04/13/22 pantoprazole 20 mg tablet,delayed 20 mg PO DAILY 04/14/22 04/14/22 04/14/22 release (Protonix) Active Medications Generic Name Dose Route Start Last Admin Trade Name Freq PRN Reason Stop Dose Admin Acetaminophen 650 mg 04/14/22 21:59 04/15/22 21:21 Acetaminophen 325 Mg Tab PO 05/14/22 21:58 650 mg Q4H PRN Administration pain/fever Ascorbic Acid 500 mg 04/15/22 09:00 04/16/22 07:17 Ascorbic Acid 500 Mg Tab PO 05/15/22 08:59 Not Given DAILY STEVE Aspirin 81 mg 04/15/22 09:00 04/16/22 07:18 Aspirin 81 Mg Ectab PO 05/15/22 08:59 81 mg QAM STEVE Administration Atorvastatin Calcium 20 mg 04/15/22 09:00 04/16/22 07:18 Atorvastatin 20 Mg Tab PO 05/15/22 08:59 20 mg DAILY STEVE Administration Heparin Sodium (Porcine) 5,000 units 04/14/22 21:59 04/15/22 07:38 Heparin Sod 5,000 Unit/0.5 Ml Vial SQ 05/14/22 21:58 5,000 units Q12 STEVE Administration Hydroxychloroquine Sulfate 400 mg 04/14/22 21:59 04/15/22 21:19 Hydroxychloroquine Sulfate 200 Mg Tab PO 05/14/22 21:58 400 mg HS STEVE Administration Hydroxyzine HCl 10 mg 04/14/22 21:59 04/14/22 22:52 Hydroxyzine Hcl 10 Mg Tab PO 05/14/22 21:58 10 mg Q8 PRN Administration Itching Cefepime HCl 2,000 mg/ Syringe 20 mls @ 5 mls/min 04/15/22 06:00 04/16/22 05:55 IV 04/22/22 05:59 5 mls/min Q12H STEVE Administration Protocol Doxycycline Hyclate 100 mg/ 110 mls @ 50 mls/hr 04/14/22 22:00 04/15/22 23:31 Dextrose IV 04/21/22 21:59 Infused Q12H STEVE Infusion Lorazepam 0.5 mg 04/14/22 22:46 04/15/22 21:18 Lorazepam 0.5 Mg Tab PO 05/14/22 22:45 0.5 mg TID PRN Administration Anxiety Nortriptyline HCl 50 mg 04/14/22 21:59 04/15/22 21:19 Nortriptyline Hcl 25 Mg Cap PO 05/14/22 21:58 50 mg HS STEVE Administration Pantoprazole Sodium 40 mg 04/15/22 09:00 04/16/22 07:18 Pantoprazole 40 Mg Tab PO 05/15/22 08:59 40 mg DAILY STEVE Administration Tramadol HCl 50 mg 04/14/22 21:59 04/16/22 06:04 Tramadol Hcl 50 Mg Tablet PO 05/14/22 21:58 50 mg Q8H PRN Administration Pain Vitamin D 1,000 units 04/15/22 09:00 04/16/22 07:17 Cholecalciferol 1,000 Units 25 Mcg Tab PO 05/15/22 08:59 Not Given QAM STEVE NPO Date Last Intake of Fluids: 04/15/22 Time Last Intake of Fluids: 23:30 Date Last Intake of Solids: 04/15/22 Time Last Intake of Solids: 21:00 Past Medical History Medical History Anxiety Diabetes diet controlled Dyslipidemia Essential tremor GERD (gastroesophageal reflux disease) History of sleep apnea prior to gastric bypass---no device currently Hypertension Osteoporosis Polyneuropathy Rheumatoid arthritis Right facial numbness Stasis dermatitis Stroke-like symptoms ? TIA happened 03/2020--CT scans at [facility] no findings---no further issue s/no neurologist Vitamin D deficiency Past Family History Family History Mother Alzheimer disease Sister Breast cancer Son Coronary heart disease Father COPD (chronic obstructive pulmonary disease) Daughter Factor V Leiden Other No family history of adverse response to anesthesia Past Surgical History Surgical History H/O gastric bypass History of anesthesia reaction during pannic[place]lectomy in [place] [facility] [place] states she was under anesthesia for 7 hours and ended up with fluid in her lungs and had to be vented and in the ICU for roughly 5 days---pt states no other issues with anesthesia History of bilateral tubal ligation History of cataract surgery RT History of cholecystectomy History of colonoscopy History of tooth extraction all top teeth removed History of total hysterectomy with bilateral salpingo-oophorectomy (BSO) Status post panniculectomy Status post trigger finger release Social History Smoking Status: Current every day smoker tobacco type: cigarettes Smoking cigarettes per day: 3-4 per day Hx Alcohol Use: Yes Alcohol type: beer alcohol intake frequency: other Alcohol Intake Frequency Comment: quit 9 mos ago d/t medications Hx Substance Use: No substance use type: does not use Physical Exam Vital Signs Last Vital Signs Temp 98.2 F 04/16/22 06:39 Pulse 85 04/16/22 06:39 Resp 18 04/16/22 06:39 BP 103/62 04/16/22 06:39 Pulse Ox 97 04/16/22 06:39 O2 Del Method 04/16/22 06:39 Testing Laboratory Results 04/16/22 05:29 04/16/22 05:29 PT 11.0 Seconds (9.0-12.0) 04/16/22 05:29 INR 1.0 (0.9-1.1) 04/16/22 05:29 Hemoglobin A1c 6.1 % (4.5-5.6) H 04/15/22 06:02 04/14/22 15:43 Aerobic Blood Culture - Preliminary Blood No growth in Aerobic bottle after 24 hours. Anaerobic Blood Culture - Preliminary No growth in Anaerobic bottle after 24 hours. 04/14/22 15:43 Aerobic Blood Culture - Preliminary Blood No growth in Aerobic bottle after 24 hours. Anaerobic Blood Culture - Preliminary No growth in Anaerobic bottle after 24 hours. 04/14/22 16:58 Gram Stain - Final Leg,Right Wound Culture - Preliminary Gram negative bacilli Gram negative bacilli#2 04/15/22 20:27 POC Glucose 174 H Electrocardiogram Date: 04/01/20 Findings: + NSR @ (75 bpm) Echocardiogram Date: 03/31/20 EF 60-65% Mild concentric LVH LA is mildly dilated Diastolic dysfunction, Grade 2 Moderate mitral annular calcification Mild MR/TR
--- NOTE | 2022-04-16 09:12 | XRay Report ---
XR chest 2V PA/lateral HISTORY: Preop. COMPARISON: Chest 03/31/2020. FINDINGS: No pneumothorax. No pleural effusions. The lungs are clear. The heart is normal in size. Th e bones are osteopenic. Prior cholecystectomy. Metallic suture coils noted within the upper abdomen. This suggests prior mesh repair of a ventral hernia. IMPRESSION: No acute process. ACT 112: Negative or not required by law. Electronically signed by: Eitan Bower M.D. 04/16/2022 9:11 AM
[2022-04-16] MEDS: DOXYCYCLINE HYCLATE 100 MG in DEXTROSE 5% 100 ML IV SCH ×2 (10:26→20:57)
[2022-04-16] MEDS ORDERED: ATROPINE SULFATE 0.1 MG/ML 10ML SYR IV PRN (10:38)
[2022-04-16] MEDS ORDERED: fentaNYL citrate 100 MCG/2 ML VIAL IV PRN (10:38)
[2022-04-16] MEDS ORDERED: ONDANSETRON INJ 2 MG/ML 2 ML VIAL IV PRN (10:38)
[2022-04-16] MEDS ORDERED: ePHEDrine sulfate 50 MG/ML AMP IV PRN (10:38)
[2022-04-16] MEDS ORDERED: fentaNYL citrate 100 MCG/2 ML VIAL ONE (10:52)
[2022-04-16] MEDS ORDERED: PROPOFOL IV EMULSION 10 MG/ML 20 ML VIAL IV ONE (10:52)
[2022-04-16] MEDS ORDERED: LIDOCAINE 2% MPF LOCAL 5 ML VIAL INFIL ONE (10:52)
[2022-04-16] MEDS ORDERED: MIDAZOLAM HCL 1 MG/ML 2ML VIAL ONE (10:53)
[2022-04-16] MEDS ORDERED: BUPIVACAINE 0.25% 30 ML VIAL ONE (11:08)
--- NOTE | 2022-04-16 11:14 | Magnetic Resonance Report ---
MR lower leg RT wo/w con HISTORY: Right lower leg open wound. evaluate for osteomyelitis TECHNIQUE: Multiplanar multisequence MRI of the right lower leg was performed both before and after t he intravenous ministration of 7.5 cc of Gadavist contrast. COMPARISON STUDY: Right tibia/fibula radiograph 04/14/2022. FINDINGS: There is a 5.0 x 1.7 cm focal skin ulceration within the mid pretibial soft tissues. This d oes not abut the adjacent bony surface. However, there is mild periosteal, endosteal, and medullary c avity edema involving the mid to distal tibial shaft. This measures approximately 10 cm in length. No definite destructive/erosive changes identified. No abnormal T1 signal identified. However, there is mild periosteal and endosteal enhancement at this location. Therefore, these findings are consistent with an osteitis with possible developing osteomyelitis. No loculated fluid collections to suggest a n abscess. There is subcutaneous edema, skin thickening, and enhancement within the anterior mid lowe r leg consistent with an associated cellulitis. IMPRESSION: 1. A 5.0 x 1.7 cm deep focal skin ulceration within the mid pretibial soft tissues. This does not abu t the adjacent bony surface. 2. Mild periosteal and medullary cavity edema involving the mid to distal tibia measuring approximate ly 10 cm in length. No definite destruction/erosive changes identified. However, there is mild perios teal/endosteal enhancement. Therefore, this likely represents an osteitis with possible developing os teomyelitis. ACT 112: Negative or not required by law. Electronically signed by: Eitan Bower M.D. 04/16/2022 11:13 AM
--- NOTE | 2022-04-16 11:52 | History & Physical Bridge Note ---
Date of Service April 16, 2022 History & Physical Bridge Note I have examined the patient, reviewed the History & Physical and in the interval since the performance of the History & Physical I have noted the following changes of clinical significance: no changes noted
[2022-04-16] MEDS ORDERED: PHENYLEPHRINE HCL 10 MG/ML VIAL ONE (12:14)
[2022-04-16] MEDS ORDERED: LIDOCAINE 1% LOCAL 20 ML VIAL ONE (12:23)
[2022-04-16] MEDS ORDERED: ONDANSETRON INJ 2 MG/ML 2 ML VIAL ONE (12:28)
--- NOTE | 2022-04-16 13:12 | Anesthesiology Progress Note ---
Date of Service April 16, 2022 Anesthesia Post Procedure Vital Signs Vital Signs: Temp Pulse Pulse Resp BP Pulse Ox O2 Del Method 04/16/22 13:10 86 14 106/56 L 100 Oxymask 04/16/22 13:00 84 13 97/55 L 100 Oxymask 04/16/22 12:50 97.3 F L 81 12 95/52 L 99 Oxymask 04/16/22 10:32 98.1 F 85 18 90/69 L 99 Room Air 04/16/22 07:52 Room Air 04/16/22 06:39 98.2 F 85 18 103/62 97 Room Air 04/15/22 20:41 98.2 F 78 18 103/64 97 Room Air 04/15/22 15:04 98.1 F 78 16 113/76 97 Room Air O2 Flow Rate 04/16/22 13:10 4 04/16/22 13:00 6 04/16/22 12:50 6 04/16/22 10:32 04/16/22 07:52 04/16/22 06:39 04/15/22 20:41 04/15/22 15:04 Pain Intensity Left [place]: Pain Intensity: 5 Transfer of Care Handoff Completed per policy Notes Mental Status: alert / awake / arousable and participated in evaluation Patient Amnestic to Procedure: Yes Nausea / Vomiting: adequately controlled Pain: adequately controlled Airway Patency, RR, SpO2: stable & adequate BP & HR: stable & adequate Hydration State: stable & adequate Anesthetic Complications: no major complications apparent and Pt Satisfied with anesthetic care
--- NOTE | 2022-04-16 13:15 | Post Operative Brief Note ---
Immediate Post Op Note v1 Date of Surgery April 16, 2022 Pre & Post Diagnosis Operation Date: 04/16/22 07:00 Pre-Op Diagnosis: Chronic Ulcer Right Lower Extremity Post-Op Diagnosis: Chronic Ulcer Right Lower Extremity I identified the patient and participated in the time-out.: Yes Procedure Operation Date: 04/16/22 07:00 Actual Procedures p Right Tibial Ulcer Incision and Debridement(Right) - Ibeth Torres DPM Surgeon Ibeth Torres DPM Rocket Engine Mechanic none Estimated Blood Loss 10 Findings Consistent with Post-Op Diagnosis Ulceration measures 4x.75 inches and undermines .25inches periwound Specimens right lower leg ulcer swab right lower leg ulcer quant culture right lower leg ulcer pathology Anesthesia Type General Complications none Disposition Accompanied Patient To Recovery: Yes
--- NOTE | 2022-04-16 14:17 | Operative Report ---
Post Operative Report Pre & Post Diagnosis Operation Date: 04/16/22 07:00 Pre-Op Diagnosis: Chronic Ulcer Right Lower Extremity Post-Op Diagnosis: Chronic Ulcer Right Lower Extremity I identified the patient and participated in the time-out.: Yes Procedure Operation Date: 04/16/22 07:00 Actual Procedures p Right Tibial Ulcer Incision and Debridement(Right) - Ibeth Torres DPM Surgeon Ibeth Torres DPM E Business Project Manager none Estimated Blood Loss 10 Findings Consistent with Post-Op Diagnosis Ulceration extends deep to cortex of tibia Specimens 1. right lower leg ulcer swab culture 2. right lower leg ulcer quant culture 3. right lower leg ulcer pathology Anesthesia Type General Complications none Disposition Accompanied Patient To Recovery: Yes Indications This patient is 72 year old female with a chronic ulcer of her right lower leg. Reports she has been treated by a wound care center in [place] and had prior surgical debridement of the ulcer in March 25 2022. Reports that the sutures that were placed last surgery have not been removed. Reports the wound continues to worsen. Patient was recently admitted and currently on IV antibioti cs. Podiatry was consulted for surgical debridement. Right lower leg MRI findings reveal no gas or deep abscess, however it does represent bone inflammation. It was recommended incision and debridement obtaining cultures and pathology specimens. Risks including, but not limited to continued infection, nerve injury, blood clots, chronic pain, loss of limb, loss of life, failure of procedure, and need for additional procedures. Patient states she understands the risks, benefits, alternatives to surgery and wants to proceed. Description of Procedure Patient was brought back to the OR and placed on the OR table in the supine position. A time-out was performed in order to correctly identify the patient, planned surgery and correct side of limb. Following MAC per the anesthesiologist, 24cc of 0.25% marcaine plain was administed as a proximal v- block under aseptic technique. The right lower extremity was then scrubbed, prepped, and draped in the usual aseptic manner. No tourniquet as utilized. The pre-debridement ulcer measurement were approximately 3.75 x 0.5 inches. The wound base consisted of fibrotic devitalized tissue and the undermining was noted to the periwound. Attention was then directed to the ulceration where the prior sutures were removed. The patient was experiencing pain therefore an additional 10cc of 1% lidocaine plain was administered to supplement the block. However, it was determined for the patient to be converted from a sedation to general anesthesia per the anesthesiologist. Excisional debridement of the ulcer with a 15 blade to remove nonhealing tissue and promote healthy bleeding. The base of the wound was curetted. Wound base did extend to the level of tibial cortex. Copious amounts of normal saline was used to irrigate the wound. Then a deep swab culture was obtained from the ulcer and sent for aerobic and anaerobic cultures and gram stain. A quantitative tissue from the ulcer was obtained and sent for aerobic and anaerobic cultures and gram stain. A tissue specimen was obtained and sent as pathology permanent. 3L of pulse lavage was utilized to irrigate the wound. Post-debridement measurement of the wound was approximately 4 x 0.75 inches and periwound undermining extended about 0.25 inches. The ulcer was packed with 0.5 inch packing gauze and covered with adaptic, 4x4 gauze, kerlix, and MARIAH bandage. The patient tolerated the procedure and anesthesia well, with vital signs stable and vascular status intact to right leg. Patient will be transferred back to the floor for continued IV and monitoring per medicine. Agree with infectious disease consult as the patient will most likely need IV antibiotic upon discharge. I placed a wound care consult for a wound vac to be applied. Patient may ambulate as tolerated. From a podiatry standpoint, patient is cleared for discharge and will need to follow up with infectious disease and [facility] for continued wound care. Patient does not need to follow up with our clinic at this time. Thank you for the surgical consult and please reconsult as needed. I attest to the content of the Intraoperative Record and any orders documented therein. Any exceptions are noted below.
--- NOTE | 2022-04-16 19:02 | Hospitalist Progress Note ---
Date of Service April 16, 2022 Assessment & Plan (1) Chronic ulcer of right lower extremity: (2) Infected wound: Plan: 72 y/o female with history of RA, has been on methotrexate although currently on hold due to non-healing wound of RLE which has been present x 6 months. Pt has undergone multiple outpatient debridements and most recently debridement in the OR on 03/25/22. She has been on multiple course of antibiotics including doxycycline, cephalexin, and now doxycycline again. No prior wound culture collected that I can find in her records or that patient recalls. Now presenting with worsening pain and change in drainage concerning for infection. MRI LE showed 5.0 x 1.7 cm deep focal skin ulceration within the mid pretibial soft tissues. Mild periosteal and medullary cavity edema involving the mid to distal tibia measuring approximately 10 cm in length. . Wound culture grew Pseudomonas Status post Right Tibial Ulcer Incision and Debridement(Right) performed by Ibeth Torres DPM wound culture from I&D pending currently on cefepime and doxycycline (3) Rheumatoid arthritis: Plan: Methotrexate currently on hold due to non-healing wound. Still on hydroxychloroquine, which will be continued. Not currently taking prednisone (4) Diabetes: Plan: Diet-controlled since gastric bypass. A1c 6.1 Continue monitor blood sugar (5) Hypertension: Plan: BP has been improved after gastric bypass - currently well-controlled (6) Anxiety: (7) Dyslipidemia: (8) GERD (gastroesophageal reflux disease): Plan: Continue PPI therapy Plan Code Status: Full Code DVT Prophylaxis: SubQ heparin Admission and Anticipated Discharge Date Admission Date: April 14, 2022 Subjective Patient was seen and evaluated for postop follow-up Lying in bed with no acute distress with daughter at bedside Denies any chest pain, palpitation, dizziness, shortness of breath. Review of Systems Review of Systems: All systems reviewed & are unremarkable except as noted in Subjective Physical Exam Physical Exam: General- No acute distress Head- atraumatic Eyes- PERRL, EOMI, ENT- oropharynx clear Neck- supple, no JVD Lungs- clear to auscultation Heart- regular rhythm; no murmur Abdomen- normal bowel sounds, soft, nontender Extremities- no calf tenderness, right lower extremity wrapped with dressing Neuro- alert, oriented x 3; PERRL, EOMI; no facial palsy; no dysarthria Skin- warm & dry Results & Data Results & Data ([facility]) Vital Signs (Past 12 Hours) Vital Signs Temp Pulse Pulse Resp BP Pulse Ox O2 Del Method 04/16/22 17:27 36.7 C 84 17 111/76 98 Room Air 04/16/22 16:34 37 C 81 16 114/68 97 Room Air 04/16/22 15:34 36.7 C 86 16 112/72 95 Room Air 04/16/22 15:01 36.8 C 88 16 103/71 96 Room Air 04/16/22 14:30 36.7 C 88 18 108/73 94 Room Air 04/16/22 13:45 83 14 104/68 100 Room Air 04/16/22 13:30 85 16 97/57 L 96 Room Air 04/16/22 13:20 82 16 101/53 L 94 Room Air 04/16/22 13:10 36.4 C L 86 14 106/56 L 100 Oxymask 04/16/22 13:00 84 13 97/55 L 100 Oxymask 04/16/22 12:50 36.3 C L 81 12 95/52 L 99 Oxymask 04/16/22 10:32 36.7 C 85 18 90/69 L 99 Room Air 04/16/22 07:52 Room Air O2 Flow Rate 04/16/22 17:27 04/16/22 16:34 04/16/22 15:34 04/16/22 15:01 04/16/22 14:30 04/16/22 13:45 04/16/22 13:30 04/16/22 13:20 04/16/22 13:10 4 04/16/22 13:00 6 04/16/22 12:50 6 04/16/22 10:32 04/16/22 07:52 (1) Hypertension Hypertension type: unspecified Qualified Code(s): I10 - Essential (primary) hypertension
[2022-04-16] MEDS: ACETAMINOPHEN 325 MG TAB PO PRN (20:00)
[2022-04-16] MEDS: HYDROXYCHLOROQUINE SULFATE 200 MG TAB PO SCH (20:53)
[2022-04-16] MEDS: NORTRIPTYLINE HCL 25 MG CAP PO SCH (20:54)
[2022-04-17] MEDS: traMADol HCL 50 MG TABLET PO PRN ×4 (00:04→20:23)
[2022-04-17] MEDS: ACETAMINOPHEN 325 MG TAB PO PRN ×2 (03:54→11:04)
[2022-04-17] MEDS: CEFEPIME 2,000 MG in SYRINGE 0 ML IV SCH ×2 (05:33→17:54)
[2022-04-17 06:26] LABS: Hematocrit (blood only) 32.8 % (34.1-44.9); Hemoglobin 10.8 g/dl (12.0-16.0); Mean Corpuscular Hemoglobin 29.8 pg (25.0-34.0); Mean Corpuscular Hgb Conc 32.9 g/dL (32.0-36.0); Mean Corpuscular Volume 90.6 fL (80.0-100.0); Mean Platelet Volume 11.1 fL (9.4-12.3); Platelet Count 249 K/uL (130-400); RDW Coefficient of Variation 15.4 % (11.5-14.5); RDW Standard Deviation 51.1 fL (36.4-46.3); Red Blood Count 3.62 M/uL (3.93-5.22); White Blood Count 7.71 K/ul (4.8-10.8)
[2022-04-17] MEDS: ASPIRIN 81 MG ECTAB PO SCH (07:34)
[2022-04-17] MEDS: PANTOprazole 40 MG TAB PO SCH (07:34)
[2022-04-17] MEDS: CHOLECALCIFEROL 1,000 UNITS 25 MCG TAB PO SCH (07:34)
[2022-04-17] MEDS: ASCORBIC ACID 500 MG TAB PO SCH (07:35)
[2022-04-17] MEDS: ATORVASTATIN 20 MG TAB PO SCH (07:35)
[2022-04-17 08:37] LABS: BUN Creatinine Ratio 24.3 (10-20); Calcium 8.7 mg/dl (8.5-10.1); Est GFR (African American) 99.6 ml/min; Potassium 4.4 mmol/L (3.5-5.1)
[2022-04-17] MEDS: DOXYCYCLINE HYCLATE 100 MG in DEXTROSE 5% 100 ML IV SCH ×2 (09:08→22:26)
--- NOTE | 2022-04-17 20:20 | Hospitalist Progress Note ---
Date of Service April 17, 2022 Assessment & Plan (1) Chronic ulcer of right lower extremity: (2) Infected wound: Plan: 72 y/o female with history of RA, has been on methotrexate although currently on hold due to non-healing wound of RLE which has been present x 6 months. Pt has undergone multiple outpatient debridements and most recently debridement in the OR on 03/25/22. She has been on multiple course of antibiotics including doxycycline, cephalexin, and now doxycycline again. No prior wound culture collected that I can find in her records or that patient recalls. Now presenting with worsening pain and change in drainage concerning for infection. MRI LE showed 5.0 x 1.7 cm deep focal skin ulceration within the mid pretibial soft tissues. Mild periosteal and medullary cavity edema involving the mid to distal tibia measuring approximately 10 cm in length. . Wound culture grew Pseudomonas Status post Right Tibial Ulcer Incision and Debridement(Right) performed by Ibeth Torres DPM wound culture from I&D gram negative bacilli currently on cefepime and doxycycline Continue wound care management (3) Rheumatoid arthritis: Plan: Methotrexate currently on hold due to non-healing wound. Still on hydroxychloroquine, which will be continued. Not currently taking prednisone (4) Diabetes: Plan: Diet-controlled since gastric bypass. Most recent A1c 6.1 on 04/15/22 Continue monitor blood sugar (5) Hypertension: Plan: BP has been improved after gastric bypass - currently well-controlled (6) Anxiety: (7) Dyslipidemia: (8) GERD (gastroesophageal reflux disease): Plan: Continue PPI therapy Plan Code Status: Full Code DVT Prophylaxis: SubQ heparin Admission and Anticipated Discharge Date Admission Date: April 14, 2022 Subjective Patient was seen and evaluated for postop follow-up Lying in bed with no acute distress watching TV Denies any chest pain, palpitation, dizziness, shortness of breath. Review of Systems Review of Systems: All systems reviewed & are unremarkable except as noted in Subjective Physical Exam Physical Exam: General- No acute distress Head- atraumatic Eyes- PERRL, EOMI, ENT- oropharynx clear Neck- supple, no JVD Lungs- clear to auscultation Heart- regular rhythm; no murmur Abdomen- normal bowel sounds, soft, nontender Extremities- no calf tenderness, right lower extremity wrapped with dressing Neuro- alert, oriented x 3; PERRL, EOMI; no facial palsy; no dysarthria Skin- warm & dry Results & Data Results [facility] ([facility]) Vital Signs (Past 12 Hours) Vital Signs Temp Pulse Resp BP Pulse Ox O2 Del Method 04/17/22 15:00 36.8 C 82 18 118/66 95 Room Air (1) Hypertension Hypertension type: unspecified Qualified Code(s): I10 - Essential (primary) hypertension
[2022-04-17] MEDS: NORTRIPTYLINE HCL 25 MG CAP PO SCH (20:24)
[2022-04-17] MEDS: HYDROXYCHLOROQUINE SULFATE 200 MG TAB PO SCH (20:24)
[2022-04-18] MEDS: CEFEPIME 2,000 MG in SYRINGE 0 ML IV SCH ×2 (06:02→17:57)
[2022-04-18] MEDS: ACETAMINOPHEN 325 MG TAB PO PRN ×2 (06:16→20:53)
[2022-04-18 07:46] LABS: Hematocrit (blood only) 32.8 % (34.1-44.9); Hemoglobin 10.9 g/dl (12.0-16.0); Mean Corpuscular Hemoglobin 30.1 pg (25.0-34.0); Mean Corpuscular Hgb Conc 33.2 g/dL (32.0-36.0); Mean Corpuscular Volume 90.6 fL (80.0-100.0); Platelet Count 239 K/uL (130-400); RDW Coefficient of Variation 15.3 % (11.5-14.5); RDW Standard Deviation 50.9 fL (36.4-46.3); Red Blood Count 3.62 M/uL (3.93-5.22); White Blood Count 6.83 K/ul (4.8-10.8)
[2022-04-18] MEDS: traMADol HCL 50 MG TABLET PO PRN ×2 (09:43→17:56)
[2022-04-18] MEDS: ATORVASTATIN 20 MG TAB PO SCH (10:45)
[2022-04-18] MEDS: ASCORBIC ACID 500 MG TAB PO SCH (10:45)
[2022-04-18] MEDS: ASPIRIN 81 MG ECTAB PO SCH (10:45)
[2022-04-18] MEDS: PANTOprazole 40 MG TAB PO SCH (10:46)
[2022-04-18] MEDS: CHOLECALCIFEROL 1,000 UNITS 25 MCG TAB PO SCH (10:46)
[2022-04-18] MEDS: DOXYCYCLINE HYCLATE 100 MG in DEXTROSE 5% 100 ML IV SCH ×2 (10:51→21:02)
[2022-04-18] MEDS: hydrOXYzine HCl 10 MG TAB PO PRN (16:24)
--- NOTE | 2022-04-18 17:44 | Hospitalist Progress Note ---
Date of Service April 18, 2022 Assessment & Plan (1) Chronic ulcer of right lower extremity: (2) Infected wound: Plan: 72 y/o female with history of RA, has been on methotrexate although currently on hold due to non-healing wound of RLE which has been present x 6 months. Pt has undergone multiple outpatient debridements and most recently debridement in the OR on 03/25/22. She has been on multiple course of antibiotics including doxycycline, cephalexin, and now doxycycline again. No prior wound culture collected that I can find in her records or that patient recalls. Now presenting with worsening pain and change in drainage concerning for infection. MRI LE showed 5.0 x 1.7 cm deep focal skin ulceration within the mid pretibial soft tissues. Mild periosteal and medullary cavity edema involving the mid to distal tibia measuring approximately 10 cm in length. . Wound culture grew Pseudomonas Status post Right Tibial Ulcer Incision and Debridement(Right) performed by Ibeth Torres DPM wound culture from I&D gram negative bacilli - Ecoli and Pseudomonas currently on cefepime and doxycycline Spoke to infectious disease Dr. Maya about antibiotic duration and choice Dr. Maya recommended IV cefepime for 7 days (start from 04/16) if there was no evidence of osteomyelitis We will discontinue doxycycline Wound VAC placed, continue wound care management Will need to follow-up with wound clinic (3) Rheumatoid arthritis: Plan: Methotrexate currently on hold due to non-healing wound. Still on hydroxychloroquine, which will be continued. Not currently taking prednisone (4) Diabetes: Plan: Diet-controlled since gastric bypass. Most recent A1c 6.1 on 04/15/22 Continue monitor blood sugar (5) Hypertension: Plan: BP has been improved after gastric bypass - currently well-controlled (6) Anxiety: (7) Dyslipidemia: (8) GERD (gastroesophageal reflux disease): Plan: Continue PPI therapy Plan Code Status: Full Code DVT Prophylaxis: SubQ heparin Admission and Anticipated Discharge Date Admission Date: April 14, 2022 Subjective Patient was seen and evaluated for postop follow-up Lying in bed with no acute distress watching TV Spoke to infectious disease Dr. Maya about antibiotic duration and choice Dr. Maya recommended IV cefepime for 7 days if there was no evidence of osteomyelitis Denies any chest pain, palpitation, dizziness, shortness of breath. Review of Systems Review of Systems: All systems reviewed & are unremarkable except as noted in Subjective Physical Exam Physical Exam: General- No acute distress Head- atraumatic Eyes- PERRL, EOMI, ENT- oropharynx clear Neck- supple, no JVD Lungs- clear to auscultation Heart- regular rhythm; no murmur Abdomen- normal bowel sounds, soft, nontender Extremities- no calf tenderness, right lower extremity wrapped with dressing Neuro- alert, oriented x 3; PERRL, EOMI; no facial palsy; no dysarthria Skin- warm & dry Results & Data Results & Data ([facility]) Vital Signs (Past 12 Hours) Vital Signs Temp Pulse Resp BP BP Pulse Ox O2 Del Method 04/18/22 15:35 37.1 C 87 16 133/73 97 Room Air 04/18/22 07:30 36.6 C 80 16 109/74 94 Room Air (1) Hypertension Hypertension type: unspecified Qualified Code(s): I10 - Essential (primary) hypertension
[2022-04-18] MEDS: HYDROXYCHLOROQUINE SULFATE 200 MG TAB PO SCH (20:50)
[2022-04-18] MEDS: NORTRIPTYLINE HCL 25 MG CAP PO SCH (20:51)
[2022-04-19] MEDS: traMADol HCL 50 MG TABLET PO PRN (04:04)
[2022-04-19] MEDS: CEFEPIME 2,000 MG in SYRINGE 0 ML IV SCH ×2 (05:36→17:55)
[2022-04-19] MEDS: ASCORBIC ACID 500 MG TAB PO SCH (09:03)
[2022-04-19] MEDS: PANTOprazole 40 MG TAB PO SCH (09:03)
[2022-04-19] MEDS: ASPIRIN 81 MG ECTAB PO SCH (09:03)
[2022-04-19] MEDS: hydrOXYzine HCl 10 MG TAB PO PRN ×2 (09:03→17:01)
[2022-04-19] MEDS: CHOLECALCIFEROL 1,000 UNITS 25 MCG TAB PO SCH (09:04)
[2022-04-19] MEDS: ATORVASTATIN 20 MG TAB PO SCH (09:04)
[2022-04-19] MEDS: POLYETHYLENE (MIRALAX) 17 GM PACK PO PRN (13:30)
--- NOTE | 2022-04-19 17:15 | Hospitalist Progress Note ---
Date of Service April 19, 2022 Assessment & Plan (1) Chronic ulcer of right lower extremity: (2) Infected wound: Plan: 72 y/o female with history of RA, has been on methotrexate although currently on hold due to non-healing wound of RLE which has been present x 6 months. Pt has undergone multiple outpatient debridements and most recently debridement in the OR on 03/25/22. She has been on multiple course of antibiotics including doxycycline, cephalexin, and now doxycycline again. No prior wound culture collected that I can find in her records or that patient recalls. Now presenting with worsening pain and change in drainage concerning for infection. MRI LE showed 5.0 x 1.7 cm deep focal skin ulceration within the mid pretibial soft tissues. Mild periosteal and medullary cavity edema involving the mid to distal tibia measuring approximately 10 cm in length. . Wound culture grew Pseudomonas Status post Right Tibial Ulcer Incision and Debridement(Right) performed by Ibeth Torres, NATHAN wound culture from I&D gram negative bacilli - Ecoli and Pseudomonas currently on cefepime and doxycycline Spoke to infectious disease Dr. Maya about antibiotic duration and choice Dr. Maya recommended IV cefepime for 7 days (start from 04/16) if there was no evidence of osteomyelitis, Will discuss with podiatry Doxycycline discontinued Wound VAC placed, continue wound care management Will need to follow-up with wound clinic (3) Rheumatoid arthritis: Plan: Methotrexate currently on hold due to non-healing wound. Still on hydroxychloroquine, which will be continued. Not currently taking prednisone (4) Diabetes: Plan: Diet-controlled since gastric bypass. Most recent A1c 6.1 on 04/15/22 Continue monitor blood sugar (5) Hypertension: Plan: BP has been improved after gastric bypass - currently well-controlled (6) Anxiety: (7) Dyslipidemia: (8) GERD (gastroesophageal reflux disease): Plan: Continue PPI therapy Plan Code Status: Full Code DVT Prophylaxis: SubQ heparin Admission and Anticipated Discharge Date Admission Date: April 14, 2022 Subjective Patient was seen and evaluated for postop follow-up Sitting in bed with no acute distress with daughter at bedside getting ready to eat her lunch Denies any chest pain, palpitation, dizziness, shortness of breath. Review of Systems Review of Systems: All systems reviewed & are unremarkable except as noted in Subjective Physical Exam Physical Exam: General- No acute distress Head- atraumatic Eyes- PERRL, EOMI, ENT- oropharynx clear Neck- supple, no JVD Lungs- clear to auscultation Heart- regular rhythm; no murmur Abdomen- normal bowel sounds, soft, nontender Extremities- no calf tenderness, right lower extremity wrapped with dressing Neuro- alert, oriented x 3; PERRL, EOMI; no facial palsy; no dysarthria Skin- warm & dry Results & Data Results & Data ([facility]) Vital Signs (Past 12 Hours) Vital Signs Temp Pulse Resp BP BP Pulse Ox O2 Del Method 04/19/22 15:36 36.6 C 87 16 116/78 94 Room Air 04/19/22 07:49 87 16 96 Room Air 04/19/22 07:35 36.8 C 85 16 100/65 93 Room Air (1) Hypertension Hypertension type: unspecified Qualified Code(s): I10 - Essential (primary) hypertension
[2022-04-19] MEDS: HYDROXYCHLOROQUINE SULFATE 200 MG TAB PO SCH (21:26)
[2022-04-19] MEDS: NORTRIPTYLINE HCL 25 MG CAP PO SCH (21:26)
[2022-04-19] MEDS: ACETAMINOPHEN 325 MG TAB PO PRN (21:28)
[2022-04-20] MEDS: CEFEPIME 2,000 MG in SYRINGE 0 ML IV SCH ×2 (05:44→18:00)
[2022-04-20] MEDS: ACETAMINOPHEN 325 MG TAB PO PRN ×2 (08:30→20:33)
[2022-04-20] MEDS: POLYETHYLENE (MIRALAX) 17 GM PACK PO PRN (08:30)
[2022-04-20] MEDS: CHOLECALCIFEROL 1,000 UNITS 25 MCG TAB PO SCH (08:31)
[2022-04-20] MEDS: PANTOprazole 40 MG TAB PO SCH (08:31)
[2022-04-20] MEDS: ASCORBIC ACID 500 MG TAB PO SCH (08:31)
[2022-04-20] MEDS: ATORVASTATIN 20 MG TAB PO SCH (08:31)
[2022-04-20] MEDS: ASPIRIN 81 MG ECTAB PO SCH (08:31)
[2022-04-20] MEDS ORDERED: bisacodyL 5 MG TABEC PO ONE (09:54)
[2022-04-20] MEDS ORDERED: POLYETHYLENE (MIRALAX) 17 GM PACK PO ONE (11:46)
[2022-04-20] MEDS ORDERED: bisacodyL 10 MG SUPP PR STA (16:57)
[2022-04-20] MEDS ORDERED: LACTULOSE SYRUP 30 GM/45 ML UDP PO STA (18:13)
--- NOTE | 2022-04-20 18:16 | Hospitalist Progress Note ---
Date of Service April 20, 2022 Assessment & Plan (1) Chronic ulcer of right lower extremity: (2) Infected wound: Plan: 72 y/o female with history of RA, has been on methotrexate although currently on hold due to non-healing wound of RLE which has been present x 6 months. Pt has undergone multiple outpatient debridements and most recently debridement in the OR on 03/25/22. She has been on multiple course of antibiotics including doxycycline, cephalexin, and now doxycycline again. No prior wound culture collected that I can find in her records or that patient recalls. Now presenting with worsening pain and change in drainage concerning for infection. MRI LE showed 5.0 x 1.7 cm deep focal skin ulceration within the mid pretibial soft tissues. Mild periosteal and medullary cavity edema involving the mid to distal tibia measuring approximately 10 cm in length. . Wound culture grew Pseudomonas Status post Right Tibial Ulcer Incision and Debridement(Right) performed by Ibeth Torres, NATHAN wound culture from I&D gram negative bacilli - Ecoli and Pseudomonas currently on cefepime and doxycycline Spoke to infectious disease Dr. Maya about antibiotic duration and choice Dr. Maya recommended IV cefepime for 7 days (start from 04/16) if there was no evidence of osteomyelitis, Will discuss with podiatry Doxycycline discontinued Wound VAC placed, continue wound care management Will need to follow-up with wound clinic (3) Rheumatoid arthritis: Plan: Methotrexate currently on hold due to non-healing wound. Still on hydroxychloroquine, which will be continued. Not currently taking prednisone (4) Constipation: Plan: Continue laxative and stool laxatives (5) Diabetes: Plan: Diet-controlled since gastric bypass. Most recent A1c 6.1 on 04/15/22 Continue monitor blood sugar (6) Hypertension: Plan: BP has been improved after gastric bypass - currently well-controlled (7) Anxiety: (8) Dyslipidemia: (9) GERD (gastroesophageal reflux disease): Plan: Continue PPI therapy Plan Code Status: Full Code DVT Prophylaxis: SubQ heparin Admission and Anticipated Discharge Date Admission Date: April 14, 2022 Subjective Patient was seen and evaluated for postop follow-up Sitting in bed with no acute distress Pt said that she has not had a bowel movement for days Denies any chest pain, palpitation, dizziness, shortness of breath. Review of Systems Review of Systems: All systems reviewed & are unremarkable except as noted in Subjective Physical Exam Physical Exam: General- No acute distress Head- atraumatic Eyes- PERRL, EOMI, ENT- oropharynx clear Neck- supple, no JVD Lungs- clear to auscultation Heart- regular rhythm; no murmur Abdomen- normal bowel sounds, soft, nontender Extremities- no calf tenderness, right lower extremity wrapped with dressing Neuro- alert, oriented x 3; PERRL, EOMI; no facial palsy; no dysarthria Skin- warm & dry Results & Data Results & Data ([facility]) Vital Signs (Past 12 Hours) Vital Signs Temp Pulse Resp BP Pulse Ox O2 Del Method 04/20/22 15:51 36.8 C 85 16 138/82 98 Room Air 04/20/22 07:02 36.6 C 79 16 115/75 99 Room Air (1) Hypertension Hypertension type: unspecified Qualified Code(s): I10 - Essential (primary) hypertension
[2022-04-20] MEDS: HYDROXYCHLOROQUINE SULFATE 200 MG TAB PO SCH (20:32)
[2022-04-20] MEDS: NORTRIPTYLINE HCL 25 MG CAP PO SCH (20:33)
[2022-04-21] MEDS: CEFEPIME 2,000 MG in SYRINGE 0 ML IV SCH ×2 (06:17→17:58)
[2022-04-21] MEDS ORDERED: LACTULOSE SYRUP 30 GM/45 ML UDP PO STA (08:16)
[2022-04-21] MEDS: hydrOXYzine HCl 10 MG TAB PO PRN ×2 (08:45→17:58)
[2022-04-21] MEDS: POLYETHYLENE (MIRALAX) 17 GM PACK PO PRN (08:45)
[2022-04-21] MEDS: ASCORBIC ACID 500 MG TAB PO SCH (08:45)
[2022-04-21] MEDS: ATORVASTATIN 20 MG TAB PO SCH (08:46)
[2022-04-21] MEDS: ASPIRIN 81 MG ECTAB PO SCH (08:46)
[2022-04-21] MEDS: CHOLECALCIFEROL 1,000 UNITS 25 MCG TAB PO SCH (08:46)
[2022-04-21] MEDS: PANTOprazole 40 MG TAB PO SCH (08:46)
[2022-04-21] MEDS: metroNIDAZOLE 500 MG TAB PO SCH ×2 (10:33→17:57)
--- NOTE | 2022-04-21 11:47 | Progress Note ---
Date of Service April 18, 2022 Assessment & Plan (1) Chronic ulcer of right lower extremity: (2) Diabetes: (3) Rheumatoid arthritis: Plan Patient was examined and evaluated. We discussed at length the etiology and treatment of her right lower extremity ulceration. We will consult in for debridement of this ulceration and have deferred wound care largely to the wound care team will recommend continued use of the wound VAC for now. She should likely have this changed every few days while inpatient can stand longer once she is discharged. She should continue seeing outpatient wound care as long as the wound remains open. We did discuss that because of her history of rhe umatoid arthritis and corresponding anti-rheumatoid drugs, along with her diabetes and advancing age, this ulcer is going to take a long time to heal regardless of treatment. We will be happy to provide follow-up care, especially as far as surgical debridements are concerned. If she is following up outpatient with wound care, she does not need to see us concurrently. For now, we will plan on signing off though can be reconsulted as necessary if she develops any new complications. Further, we did discuss that because of the proximal nature of the wound, if it does worsen or probe to bone, more suggestive of osteomyelitis, she would benefit most from follow-up with orthopedics or General surgery to discuss a more proximal amputation. Patient understands and will follow-up as necessary. She states that she is currently not planning on being discharged soon, mostly because of finding continuity of care with her wound VAC outpatient. Admission and Anticipated Discharge Date Admission Date: April 14, 2022 Subjective Patient was seen at bedside postop day #2 status post right leg ulcer debridement. She is doing well with her wound VAC currently in place. She is tolerating it well with some discomfort but no acute pain. She is feeling well with no systemic signs or symptoms of infection. No new complaints are noted at this visit. Review of Systems Review of Systems: All systems reviewed & are unremarkable except as noted in HPI & below Physical Exam Physical Exam: Patient is alert and oriented 3. Patient is in no acute distress. Wound VAC is intact with adequate pressure noted. No drainage is noted to the canister; Some scant serosanguineous drainage noted within the tube/hose. No local signs of infection noted to the ulceration or the local skin. No ascending cellulitis. Pathology suggests no malignancy though there are chronic signs of inflammation within the soft tissue. No bone or osteomyelitis identified. The wound did not probe directly to bone during surgery, so osteomyelitis is thought to be less likely clinically as well. Cultures are suggestive of pseudomonas aeruginosa infection. This does correlate clinically with the green discharge noted with the surgical debridement. Otherwise, no new changes are noted on physical exam. Results & Data ([facility]) Vital Signs (Past 12 Hours) Vital Signs Temp Pulse Pulse Resp BP Pulse Ox O2 Del Method 04/21/22 11:30 36.7 C 97 H 20 137/83 98 Room Air 04/21/22 07:53 36.6 C 85 18 120/60 98 Room Air
[2022-04-21] MEDS: ACETAMINOPHEN 325 MG TAB PO PRN ×2 (12:55→18:07)
[2022-04-21] MEDS: HYDROXYCHLOROQUINE SULFATE 200 MG TAB PO SCH (21:19)
[2022-04-21] MEDS: traMADol HCL 50 MG TABLET PO PRN (21:19)
[2022-04-21] MEDS: NORTRIPTYLINE HCL 25 MG CAP PO SCH (21:20)
[2022-04-22] MEDS: metroNIDAZOLE 500 MG TAB PO SCH ×3 (02:53→17:38)
--- NOTE | 2022-04-22 03:01 | Hospitalist Progress Note ---
Date of Service April 21, 2022 Assessment & Plan (1) Chronic ulcer of right lower extremity: (2) Infected wound: Plan: 72 y/o female with history of RA, has been on methotrexate although currently on hold due to non-healing wound of RLE which has been present x 6 months. Pt has undergone multiple outpatient debridements and most recently debridement in the OR on 03/25/22. She has been on multiple course of antibiotics including doxycycline, cephalexin, and now doxycycline again. No prior wound culture collected that I can find in her records or that patient recalls. Now presenting with worsening pain and change in drainage concerning for infection. MRI LE showed 5.0 x 1.7 cm deep focal skin ulceration within the mid pretibial soft tissues. Mild periosteal and medullary cavity edema involving the mid to distal tibia measuring approximately 10 cm in length. . Wound culture grew Pseudomonas Status post Right Tibial Ulcer Incision and Debridement(Right) performed by Ibeth Torres, NATHAN wound culture from I&D gram negative bacilli - Ecoli and Pseudomonas She was started on IV doxycycline and IV cefepime Spoke to infectious disease Dr. Maya about antibiotic duration and choice Dr. Maya recommended IV cefepime for 7 days (start from 04/16) if there was no evidence of osteomyelitis Case discussed with podiatry Dr. Menendez that said the wound was deep and there was bone involvement to the bone cortex, and agreed to treat it like osteomyelitis Case discussed with ID.recommended 6-week of IV antibiotic with cefepime Metronidazole added due to anaerobes coverage for Bacteroides caccae organism Dr. Maya recommended to discuss the risks of long-term use Flagyl with the patient including irreversible neuropathy. If the patient is not comfortable with the risk profile we will reach again to ID to come up with other option for anaerobes coverage Wound VAC placed, continue wound care management Will need PICC line prior to discharge for IV antibiotic Will need to follow-up with wound clinic follow-up (3) Rheumatoid arthritis: Plan: Methotrexate currently on hold due to non-healing wound. Still on hydroxychloroquine, which will be continued. Not currently taking prednisone (4) Constipation: Plan: Continue laxative and stool laxatives (5) Diabetes: Plan: Diet-controlled since gastric bypass. Most recent A1c 6.1 on 04/15/22 Continue monitor blood sugar (6) Hypertension: Plan: BP has been improved after gastric bypass - currently well-controlled (7) Anxiety: (8) Dyslipidemia: (9) GERD (gastroesophageal reflux disease): Plan: Continue PPI therapy Plan Code Status: Full Code DVT Prophylaxis: SubQ heparin Admission and Anticipated Discharge Date Admission Date: April 14, 2022 Subjective Patient was seen and evaluated for postop follow-up Sitting in bed with no acute distress Patient states she feels much better today because she had a large bowel movement Denies any chest pain, palpitation, dizziness, shortness of breath. Review of Systems Review of Systems: All systems reviewed & are unremarkable except as noted in Subjective Physical Exam Physical Exam: General- No acute distress Head- atraumatic Eyes- PERRL, EOMI, ENT- oropharynx clear Neck- supple, no JVD Lungs- clear to auscultation Heart- regular rhythm; no murmur Abdomen- normal bowel sounds, soft, nontender Extremities- no calf tenderness, right lower extremity wrapped with dressing Neuro- alert, oriented x 3; PERRL, EOMI; no facial palsy; no dysarthria Skin- warm & dry Results & Data Results & Data ([facility]) Vital Signs (Past 12 Hours) Vital Signs Temp Pulse Pulse Resp BP Pulse Ox O2 Del Method 04/21/22 21:20 Room Air 04/21/22 22:05 36.7 C 80 16 95/64 L 97 Room Air 04/21/22 15:04 36.7 C 72 16 120/78 97 Room Air (1) Hypertension Hypertension type: unspecified Qualified Code(s): I10 - Essential (primary) hypertension
[2022-04-22] MEDS: CEFEPIME 2,000 MG in SYRINGE 0 ML IV SCH ×2 (06:02→17:36)
[2022-04-22] MEDS: ACETAMINOPHEN 325 MG TAB PO PRN ×2 (09:37→17:43)
[2022-04-22] MEDS: ASPIRIN 81 MG ECTAB PO SCH (09:38)
[2022-04-22] MEDS: ASCORBIC ACID 500 MG TAB PO SCH (09:38)
[2022-04-22] MEDS: CHOLECALCIFEROL 1,000 UNITS 25 MCG TAB PO SCH (09:39)
[2022-04-22] MEDS: ATORVASTATIN 20 MG TAB PO SCH (09:39)
[2022-04-22] MEDS: PANTOprazole 40 MG TAB PO SCH (09:39)
[2022-04-22] MEDS: hydrOXYzine HCl 10 MG TAB PO PRN (10:19)
--- NOTE | 2022-04-22 18:50 | Hospitalist Progress Note ---
Date of Service April 22, 2022 Assessment & Plan (1) Chronic ulcer of right lower extremity: (2) Infected wound: Plan: 72 y/o female with history of RA, has been on methotrexate although currently on hold due to non-healing wound of RLE which has been present x 6 months. Pt has undergone multiple outpatient debridements and most recently debridement in the OR on 03/25/22. She has been on multiple course of antibiotics including doxycycline, cephalexin, and now doxycycline again. No prior wound culture collected that I can find in her records or that patient recalls. Now presenting with worsening pain and change in drainage concerning for infection. MRI LE showed 5.0 x 1.7 cm deep focal skin ulceration within the mid pretibial soft tissues. Mild periosteal and medullary cavity edema involving the mid to distal tibia measuring approximately 10 cm in length. . Wound culture grew Pseudomonas Status post Right Tibial Ulcer Incision and Debridement(Right) performed by Ibeth Torres, NATHAN wound culture from I&D gram negative bacilli - Ecoli and Pseudomonas She was started on IV doxycycline and IV cefepime Spoke to infectious disease Dr. Maya about antibiotic duration and choice Dr. Maya recommended IV cefepime for 7 days (start from 04/16) if there was no evidence of osteomyelitis Case discussed with podiatry Dr. Menendez that said the wound was deep and there was bone involvement to the bone cortex, and agreed to treat it like osteomyelitis Case discussed with ID.recommended 6-week of IV antibiotic with cefepime Metronidazole added due to anaerobes coverage for Bacteroides caccae organism Dr. Maya recommended to discuss the risks of long-term use Flagyl with the patient including irreversible neuropathy. If the patient is not comfortable with the risk profile we will reach again to ID to come up with other option for anaerobes coverage. Discussed with patient about the risks of long-term use Flagyl including irreversible neuropathy. Patient would like to use an alternative antibiotic fo r the anaerobes coverage. I called ID Dr. Maya that will get back to me later Wound VAC placed, continue wound care management Will need PICC line prior to discharge for IV antibiotic Will need to follow-up with wound clinic outpatient Check CBC and CMP weekly while on IV cefepime (3) Rheumatoid arthritis: Plan: Methotrexate currently on hold due to non-healing wound. Still on hydroxychloroquine, which will be continued. Not currently taking prednisone (4) Constipation: Plan: Continue laxative and stool laxatives (5) Diabetes: Plan: Diet-controlled since gastric bypass. Most recent A1c 6.1 on 04/15/22 Continue monitor blood sugar (6) Hypertension: Plan: BP has been improved after gastric bypass - currently well-controlled (7) Anxiety: (8) Dyslipidemia: (9) GERD (gastroesophageal reflux disease): Plan: Continue PPI therapy Plan Code Status: Full Code DVT Prophylaxis: SubQ heparin Admission and Anticipated Discharge Date Admission Date: April 14, 2022 Subjective Patient was seen and evaluated for postop follow-up Sitting in bed with no acute distress with daughter at bedside Patient says she feels fine Denies any chest pain, palpitation, dizziness, shortness of breath. Review of Systems Review of Systems: All systems reviewed & are unremarkable except as noted in Subjective Physical Exam Physical Exam: General- No acute distress Head- atraumatic Eyes- PERRL, EOMI, ENT- oropharynx clear Neck- supple, no JVD Lungs- clear to auscultation Heart- regular rhythm; no murmur Abdomen- normal bowel sounds, soft, nontender Extremities- no calf tenderness, right lower extremity wrapped with dressing Neuro- alert, oriented x 3; PERRL, EOMI; no facial palsy; no dysarthria Skin- warm & dry Results & Data Results & Data ([facility]) Vital Signs (Past 12 Hours) Vital Signs Temp Pulse Resp BP Pulse Ox O2 Del Method 04/22/22 15:21 36.6 C 90 16 100/67 95 Room Air 04/22/22 08:26 36.7 C 90 16 98/66 L 98 Room Air (1) Hypertension Hypertension type: unspecified Qualified Code(s): I10 - Essential (primary) hypertension
[2022-04-22] MEDS: NORTRIPTYLINE HCL 25 MG CAP PO SCH (19:52)
[2022-04-22] MEDS: HYDROXYCHLOROQUINE SULFATE 200 MG TAB PO SCH (19:52)
[2022-04-22] MEDS: traMADol HCL 50 MG TABLET PO PRN (22:02)
[2022-04-23] MEDS: metroNIDAZOLE 500 MG TAB PO SCH ×3 (02:05→18:07)
[2022-04-23] MEDS: ASPIRIN 81 MG ECTAB PO SCH (08:30)
[2022-04-23] MEDS: ASCORBIC ACID 500 MG TAB PO SCH (08:30)
[2022-04-23] MEDS: CHOLECALCIFEROL 1,000 UNITS 25 MCG TAB PO SCH (08:30)
[2022-04-23] MEDS: ATORVASTATIN 20 MG TAB PO SCH (08:31)
[2022-04-23] MEDS: PANTOprazole 40 MG TAB PO SCH (08:31)
[2022-04-23] MEDS: LORazepam 0.5 MG TAB PO PRN (08:37)
[2022-04-23] MEDS: traMADol HCL 50 MG TABLET PO PRN ×2 (08:38→21:44)
[2022-04-23] MEDS: CEFEPIME 2,000 MG in SYRINGE 0 ML IV SCH ×2 (11:34→18:07)
--- NOTE | 2022-04-23 13:01 | Hospitalist Progress Note ---
Date of Service April 23, 2022 Assessment & Plan (1) Chronic ulcer of right lower extremity: (2) Infected wound: Plan: 72 y/o female with history of RA, has been on methotrexate although currently on hold due to non-healing wound of RLE which has been present x 6 months. Pt has undergone multiple outpatient debridements and most recently debridement in the OR on 03/25/22. She has been on multiple course of antibiotics including doxycycline, cephalexin, and now doxycycline again. No prior wound culture collected that I can find in her records or that patient recalls. Now presenting with worsening pain and change in drainage concerning for infection. MRI LE showed 5.0 x 1.7 cm deep focal skin ulceration within the mid pretibial soft tissues. Mild periosteal and medullary cavity edema involving the mid to distal tibia measuring approximately 10 cm in length. . Wound culture grew Pseudomonas Status post Right Tibial Ulcer Incision and Debridement(Right) performed by Ibeth Torres, NATHAN wound culture from I&D gram negative bacilli - Ecoli and Pseudomonas She was started on IV doxycycline and IV cefepime Spoke to infectious disease Dr. Maya about antibiotic duration and choice Dr. Maya recommended IV cefepime for 7 days (start from 04/16) if there was no evidence of osteomyelitis Case discussed with podiatry Dr. Menendez that said the wound was deep and there was bone involvement to the bone cortex, and agreed to treat it like osteomyelitis Case discussed with ID.recommended 6-week of IV antibiotic with cefepime Metronidazole added due to anaerobes coverage for Bacteroides caccae organism Dr. Maya recommended to discuss the risks of long-term use Flagyl with the patient including irreversible neuropathy. If the patient is not comfortable with the risk profile we will reach again to ID to come up with other option for anaerobes coverage. Discussed with patient about the risks of long-term use Flagyl including irreversible neuropathy. Patient would like to use an alternative antibiotic fo r the anaerobes coverage. I called ID Dr. Maya that will get back to me later Dr. Maya recommends Flagyl 500mg po q8hr x 4 weeks, as opposed to 6 weeks, if she experiences neuropathy like sx then to discontinue immediately Wound VAC placed, continue wound care management PICC Line consent done today, PICC LIne ordered Will need to follow-up with wound clinic outpatient Check CBC and CMP weekly while on IV cefepime (3) Rheumatoid arthritis: Plan: Methotrexate currently on hold due to non-healing wound. Still on hydr oxychloroquine, which will be continued. Not currently taking prednisone (4) Constipation: Plan: Continue laxative and stool laxatives (5) Diabetes: Plan: Diet-controlled since gastric bypass. Most recent A1c 6.1 on 04/15/22 Continue monitor blood sugar (6) Hypertension: Plan: BP has been improved after gastric bypass - currently well-controlled (7) Anxiety: (8) Dyslipidemia: (9) GERD (gastroesophageal reflux disease): Plan: Continue PPI therapy Plan Code Status: Full Code DVT Prophylaxis: SubQ heparin Dispo: Family is to be educated today on how to administer antibiotics, she will go to wound clinic 3x a week, antibiotics to be delivered tomorrow, pt to be discharged tomorrow PICC line to be placed today PER CM NOTES: Pt has wound appt. set for Thursday at 0800, they are aware. Wound vac approved and will be released at d/c from sterile processing with proof of delivery to be signed and faxed back to [facility]. Pt. will need appt. at [facility] next Thursday for PICC dressing change. Pt. will need lab draws weekly, coordinated through PCP office. Admission and Anticipated Discharge Date Admission Date: April 14, 2022 Supervising Physician Co-Signing Physician Notes Patient seen and examined independently. Discussed with May Aguirre PA-C. Patient admitted with chronic ulcer of right lower extremity with osteomyelitis ID recommended 6 weeks of cefepime for gram-negative coverage and Flagyl for anaerobic coverage. PICC line placed today Discussion done with Dr. Maya from infectious disease; recommends Flagyl for a shorter duration of 4 weeks which will lower the risks of neuropathy. Extensive discussion done with the patient as well; she understands risks and is okay for shorter duration of Flagyl. Possible discharge tomorrow a.m. Subjective Patient was seen and examined in room 302-1. Follow up RLE osteomyelitis. She c/o pain to the RLE wound vac, ashanti with dressing changes. She is anxious about getting PICC line. Denies chest pain, sob, n/v/d, f/c/s. Appetite is decent. Review of Systems Review of Systems: All systems reviewed & are unremarkable except as noted in HPI & below Physical Exam Physical Exam: Gen: WD/WN, F, NAD, A&O x3 HEENT: Normocephalic, atraumatic, conjunctivae moist, sclerae anicteric, mucous membranes moist. Lung: Clear to Auscultation bilaterally, no wheezes/rales/rhonchi Heart: Regular rate, regular rhythm, no murmurs, rubs, or gallops Abdomen: Soft, NT, ND +BS x 4 Extremities: No edema, RLE wound vac in place, no surrounding erythema, pedal pulse +1 Skin: Warm, no rash, negative turgor. Results & Data Results & Data ([facility]) Vital Signs (Past 12 Hours) Vital Signs Temp Pulse Resp BP Pulse Ox O2 Del Method 04/23/22 11:39 36.7 C 88 14 106/69 94 Room Air 04/23/22 07:45 36.7 C 83 13 115/70 96 Room Air Medications Administered Current Inpatient Medications Acetaminophen (Acetaminophen 325 Mg Tab) 650 mg PO Q4H PRN PRN Reason: pain/fever Stop: 05/14/22 21:58 Last Admin: 04/22/22 17:43 Dose: 650 mg Ascorbic Acid (Ascorbic Acid 500 Mg Tab) 500 mg PO DAILY STEVE Stop: 05/15/22 08:59 Last Admin: 04/23/22 08:30 Dose: 500 mg Aspirin (Aspirin 81 Mg Ectab) 81 mg PO QAM STEVE Stop: 05/15/22 08:59 Last Admin: 04/23/22 08:30 Dose: 81 mg Atorvastatin Calcium (Atorvastatin 20 Mg Tab) 20 mg PO DAILY STEVE Stop: 05/15/22 08:59 Last Admin: 04/23/22 08:31 Dose: 20 mg Fluticasone Propionate (Fluticasone Propionate Na Spr 16 Gm Btl) 2 sprays NA DAILY PRN PRN Reason: Congestion Stop: 05/14/22 21:58 Heparin Sodium (Porcine) (Heparin Sod 5,000 Unit/0.5 Ml Vial) 5,000 units SQ Q12 STEVE Stop: 05/14/22 21:58 Last Admin: 04/15/22 07:38 Dose: 5,000 units Hydroxychloroquine Sulfate (Hydroxychloroquine Sulfate 200 Mg Tab) 400 mg PO HS STEVE Stop: 05/14/22 21:58 Last Admin: 04/22/22 19:52 Dose: 400 mg Hydroxyzine HCl (Hydroxyzine Hcl 10 Mg Tab) 10 mg PO Q8 PRN PRN Reason: Itching Stop: 05/14/22 21:58 Last Admin: 04/22/22 10:19 Dose: 10 mg Cefepime HCl 2,000 mg/ Syringe 20 mls @ 5 mls/min IV Q8H STEVE; Protocol Stop: 06/04/22 09:59 Last Admin: 04/23/22 11:34 Dose: 5 mls/min Loratadine (Loratadine 10 Mg Tab) 10 mg PO DAILY PRN PRN Reason: Congestion Stop: 05/14/22 21:58 Lorazepam (Lorazepam 0.5 Mg Tab) 0.5 mg PO TID PRN PRN Reason: Anxiety Stop: 05/14/22 22:45 Last Admin: 04/23/22 08:37 Dose: 0.5 mg Metronidazole (Metronidazole 500 Mg Tab) 500 mg PO Q8H STEVE Stop: 04/28/22 09:59 Last Admin: 04/23/22 11:18 Dose: 500 mg Nortriptyline HCl (Nortriptyline Hcl 25 Mg Cap) 50 mg PO HS [facility] Stop: 05/14/22 21:58 Last Admin: 04/22/22 19:52 Dose: 50 mg Pantoprazole Sodium (Pantoprazole 40 Mg Tab) 40 mg PO DAILY [facility] Stop: 05/15/22 08:59 Last Admin: 04/23/22 08:31 Dose: 40 mg Polyethylene Glycol (Polyethylene (Miralax) 17 Gm Pack) 17 gm PO DAILY PRN PRN Reason: Constipation Stop: 05/19/22 13:02 Last Admin: 04/21/22 08:45 Dose: 17 gm Tramadol HCl (Tramadol Hcl 50 Mg Tablet) 50 mg PO Q8H PRN PRN Reason: Pain Stop: 05/14/22 21:58 Last Admin: 04/23/22 08:38 Dose: 50 mg Vitamin D (Cholecalciferol 1,000 Units 25 Mcg Tab) 1,000 units PO QAM [facility] Stop: 05/15/22 08:59 Last Admin: 04/23/22 08:30 Dose: 1,000 units (1) Hypertension Hypertension type: unspecified Qualified Code(s): I10 - Essential (primary) hypertension
[2022-04-23] MEDS: ACETAMINOPHEN 325 MG TAB PO PRN (18:06)
[2022-04-23] MEDS: NORTRIPTYLINE HCL 25 MG CAP PO SCH (20:19)
[2022-04-23] MEDS: HYDROXYCHLOROQUINE SULFATE 200 MG TAB PO SCH (20:19)
[2022-04-23] MEDS: HEPARIN SOD 5,000 UNIT/0.5 ML VIAL SQ SCH (20:20)
[2022-04-24] MEDS: metroNIDAZOLE 500 MG TAB PO SCH ×2 (01:39→09:07)
[2022-04-24] MEDS: CEFEPIME 2,000 MG in SYRINGE 0 ML IV SCH ×2 (01:39→07:57)
[2022-04-24] MEDS: hydrOXYzine HCl 10 MG TAB PO PRN (01:46)
[2022-04-24 06:50] LABS: Basophils # (auto) 0.07 K/uL (0-0.2); Basophils % (auto) 0.9 %; Eosinophils # (auto) 0.51 K/uL (0-0.50); Eosinophils % (auto) 6.7 %; Hematocrit (blood only) 31.5 % (34.1-44.9); Hemoglobin 10.2 g/dl (12.0-16.0); Immature Granulocytes # (auto) 0.02 K/uL (0.00-0.02); Immature Granulocytes % (auto) 0.3 %; Lymphocytes # (auto) 2.66 K/uL (1.2-3.4); Lymphocytes % (auto) 35.1 %; Mean Corpuscular Hemoglobin 29.6 pg (25.0-34.0); Mean Corpuscular Hgb Conc 32.4 g/dL (32.0-36.0); Mean Corpuscular Volume 91.3 fL (80.0-100.0); Mean Platelet Volume 11.2 fL (9.4-12.3); Monocytes # (auto) 0.82 K/uL (0.24-0.82); Monocytes % (auto) 10.8 %; Neutrophils # (auto) 3.49 K/uL (1.4-6.5); Neutrophils % (auto) 46.2 %; Platelet Count 237 K/uL (130-400); RDW Coefficient of Variation 15.2 % (11.5-14.5); RDW Standard Deviation 50.5 fL (36.4-46.3); Red Blood Count 3.45 M/uL (3.93-5.22); White Blood Count 7.57 K/ul (4.8-10.8)
[2022-04-24 07:07] LABS: Albumin Level 3.4 gm/dl (3.4-5.0); Bilirubin,Total 0.5 mg/dl (0.2-1.0); Calcium 8.8 mg/dl (8.5-10.1); Potassium 4.1 mmol/L (3.5-5.1)
[2022-04-24 07:13] LABS: Albumin Globulin Ratio 1.2 (0.9-2); BUN Creatinine Ratio 37.9 (10-20); Creatinine Clr Calc Pharmacy 83.3 ml/min; Est GFR (Non-African American) 91.4 ml/min; Globulin 2.8 gm/dl (2.5-4.0); Total Protein 6.2 gm/dl (6.0-8.3)
--- NOTE | 2022-04-24 08:47 | Discharge Summary ---
Date of Service April 24, 2022 Admission HPI Per Admitting Provider This is a 72 y/o female with a PMH of RA, DM2 with associated polyneuropathy, stasis dermatitis, prior TIA, dyslipidemia, GERD, osteoporosis, essential tremor and anxiety who presented to the ED today with worsening pain and drainage associated with chronic RLE wound. Pt developed this right lower extremity wound around October - developed infection in end of Dec. Saw PCP early January and was treated with doxycycline without significant improvement. Referred to wound clinic at [facility] and seen 02/05/22 for initial evaluation. Given wound care instructions and recommended to follow through with outpatient MRI to rule out osteomyelitis. MRI of tib/fib done on 02/20/22 and was negative for osteomyelitis. Seen again by PCP office on 02/24/22 who started her on a 10 day course of cephalexin. PCP discussed pt with rheumatology who agreed that pt should hold methotrexate until lesions resolves. Pt continued to follow with wound care and underwent multiple debridements in the office. On 03/25/22 she underwent debridement in the OR with placement of a wound VAC. Has continued to follow with wound care but pt/family unhappy with care and were requesting a second opinion with [facility] wound care clinic. This appointment has not yet been scheduled. Pt reports that the wound VAC was on for about a week after the OR procedure. Since then, family has been doing wet to dry dressings. She was started on doxycycline again on 04/11/21. Over the last 2-3 days, she has noted increasing pain in the RLE - taking Tylenol and ibuprofen intermittent for the pain but doesn't feel like it's helping. Prefers to avoid taking oxycodone. She also notes a chance in the color of the drainage from yellow to green although it has decreased in amount since they stopped using compression dressings. It has a foul odor to it but that is unchanged. [facility] due to the complicated nature of her clinical course. No wound culture was noted on file, and pt does not recall any being collected. Admission Exam Per Admitting Provider Constitutional: well developed and well nourished; no acute distress Eyes: + anicteric sclerae Neck: trachea midline Respiratory: no respiratory distress and no labored breathing Auscultation: lungs clear to auscultation bilaterally; no rales, no rhonchi and no wheezes Cardiovascular: Rate/Rhythm: regular rate and regular rhythm Vessels: posterior tibial pulses present and radial pulses present trace LE edema bilaterally Gastrointestinal (Abdomen): Inspection/Auscultation: normal bowel sounds; abdomen not distended Percussion/Palpation: abdomen soft; abdomen nontender Musculoskeletal: bilateral hands with deformities c/w known RA, mildly edematous Skin: right anterior shepherd with ~7 cm wound - sutures still in place at ends. +purulent green slough in wound but not otherwise draining, mild associated erythema. tender to light pressure Neurologic: moves all extremities; no focal motor deficits and not confused Psychiatric: A+Ox3, euthymic affect Principal Diagnosis chronic RLE wound Discharge Exam Gen: WD/WN, NAD, lying in bed, A&Ox3 HEENT: Normocephalic, atraumatic, conjunctivae moist, sclerae anicteric, mucous membranes moist Lung: Clear to Auscultation bilaterally, no wheezes/rales/rhonchi Heart: Regular rate, regular rhythm, no murmurs, rubs, or gallops Abdomen: Soft, NT, ND +BS x 4 Extremities: +RLE wound vac in place, no surrounding erythema Skin: Warm, no rash Discharge Data Allergies Allergy/AdvReac Type Severity Reaction Status Date / Time infliximab Allergy Severe SHORTNESS Verified 04/14/22 17:26 OF BREATH adhesive Allergy Mild Rash Verified 04/14/22 17:26 iodine Allergy Mild Rash Verified 04/14/22 17:26 Penicillins Allergy Unknown Unknown Verified 04/14/22 17:26 clindamycin AdvReac Intermediate Diarrhea Verified 04/14/22 17:26 Sulfa (Sulfonamide AdvReac Intermediate GI Verified 04/14/22 17:26 Antibiotics) UPSET/DIARRHEA Consultations 04/14/22 17:20 ED Decision to Admit Stat 04/14/22 21:59 Consult Infectious Diseases Routine Consult Podiatry Routine Procedures Performed Operation Date: 04/16/22 07:00 Actual Procedures p Right Tibial Ulcer Incision and Debridement(Right) - Ibeth Torres DPM Ordered Studies 04/15/22 19:03 MRI Lower Leg [MR lower leg RT wo/w con] Routine Hospital Course (1) Rheumatoid arthritis: (2) Constipation: (3) Diabetes: (4) Hypertension: (5) Anxiety: (6) Dyslipidemia: (7) GERD (gastroesophageal reflux disease): Continue PPI therapy Plan This is a 72 y/o female with a PMH of RA, DM2 with associated polyneuropathy, stasis dermatitis, prior TIA, dyslipidemia, GERD, osteoporosis, essential tremor and anxiety who presented to the ED today with worsening pain and drainage associated with chronic RLE wound x 6 months. Most recently debrided in the OR on 03/25/22. She has been on multiple course of antibiotics including doxycycline, cephalexin, and now doxycycline again but presented with worsening pain and change in drainage concerning for infection. MRI LE showed5.0 x 1.7 cm deep focal skin ulceration within the mid pretibial soft tissues. Mild periosteal and medullary cavity edema involving the mid to distal tibia measuring approximately 10 cm in length. Status post Right Tibial Ulcer Incision and Debridement(Right) performed by Ibeth Torres DPM. Wound culture from I&D gram negative bacilli - E coli and Pseudomonas and was placed on 6 weeks of IV cefepime as well as Flagyl for anaerobic coverage per ID recommendations. Flagyl length of course decreased after further discussion with ID to 4 weeks given [facility]p risks of Flagyl including neuropathy. Wound VAC placed, continue wound care management with next appointment tomorrow (04/24/22) and IV abx with PICC line in place. Follow up with [facility] next Thursday for PICC dressing change, PCP for weekly CBC and CMP while on Cefepime. Methotrexate currently on hold due to non-healing wound. Patient hemodynamically stable at time of discharge. Total Time Total Time Spent Total Time Spent (In Minutes): 50 Discharge Plan Discharge Items Patient Disposition: Home - Home Health Services Reason For Visit: RIGHT LEG WOUND RE-CHECK Discharge Diagnosis: Chronic Ulcer of Right Lower Leg Infected wound of multiple organisms Condition on Discharge: Good Activity: Per Instructions section Lifting: None Bathing Comment: Keep PICC line dressing Clean, dry and secured to skin. Driving/Machine Use: Do not drive until cleared by Primary Care Provider Non-emergency contact: Primary Care Provider Call non-emergency contact if: you have any medication questions, your symptoms worsen, your pain is not controlled, your pain is worsening, your pain is unusual for you, your pain is concerning for you, you have a fever, your temperature is above 101, your wound has increased redness, your wound has increased drainage and your wound pain has increased Follow-up/Referrals: [facility] [Other] - 04/25/22 8:00 am ([address], [place] [address] ) Sirena Lozano MD [Primary Care Provider] - 04/28/22 3:00 pm (Date & Time 04/28/2022 3:00 PM Provider Sirena Lozano MD [facility] ) Diet: Carb Consistent or DM2 Addtl Attending Provider Instructions: An appt. has been made for you at [facility] on Thursday04/30/22 at 2:30pm for labs and PICC line dressing changes. MEDICATION CHANGES: IV Cefepime 2q q12hrs for 6 weeks, through 04/27/2022. Flagyl 500mg by mouth three times daily x 4 weeks. Florastor 250mg once daily x 6 weeks - for GI health PENDING TEST RESULTS: None RECOMMENDATIONS FOR FOLLOW-UP: Please take all medications as prescribed. You have a wound care appt set for Thursday at 0800. You have an appointment at [facility] 04/30/22 for PICC Dressing change and labs at 2:30 pm. You will need weekly lab draws that will be followed by your Primary Care Provider. Keep PICC line dressing clean and dry, you will go to [facility] for dressing changes. OTHER INSTRUCTIONS: Seek medical attention if you have: * temperature above 101 * chest pain or trouble breathing * abdominal pain, nausea, vomiting * diarrhea, dark stools or bloody stools * Redness, warmth or pain around PICC line * any unanswered questions or concerns Call 911 if symptoms are severe. Please take good care of yourself. It has been a pleasure taking care of you. Please take care of yourself. If you have any questions regarding your recent hospitalization please contact [facility] and request Meka Vaughnist @ [phone]. Lorene Aguirre PA-C Pending Studies at Discharge: No Stand-Alone Forms: [facility], Smoking Cessation Medications and DC Order Prescriptions: New cefepime 2 gram recon soln 2 g IV Q12H 35 Days Qty: 70 0RF metronidazole 500 mg Tablet 500 mg PO Q8H 28 Days Qty: 84 0RF tramadol 50 mg Tablet 50 mg PO Q8H PRN (Reason: pain) Qty: 20 0RF Saccharomyces boulardii [Florastor] 250 mg capsule 250 mg PO DAILY 42 Days Qty: 42 0RF Continued cholecalciferol (vitamin D3) 25 mcg (1,000 unit) Tablet 1,000 unit PO QAM atorvastatin 20 mg Tablet 20 mg PO DAILY pantoprazole [Protonix] 20 mg Tablet,Delayed Release (Dr/Ec) 20 mg PO DAILY lorazepam 0.5 mg tablet 0.5 mg PO TID PRN (Reason: Anxiety) ascorbic acid (vitamin C) [Vitamin C] 500 mg Tablet 500 mg PO DAILY hydroxychloroquine 200 mg tablet 400 mg PO HS betamethasone dipropionate 0.05 % Ointment 1 applic TOPICAL BID PRN (Reason: ECZEMA FLARE UPS) fluticasone propionate 50 mcg/actuation Hickman,Suspension 2 spray INTRANASAL DAILY PRN (Reason: Congestion) Rx Instructions: administer into each nostril loratadine [Claritin] 10 mg Tablet 10 mg PO DAILY PRN (Reason: Congestion) nortriptyline 50 mg capsule 50 mg PO HS Adult Multivitamin Gummies 200 mcg Tablet,Chewable 2 tab PO DAILY aspirin [Sergio Low Dose Aspirin] 81 mg Tablet,Delayed Release (Dr/Ec) 81 mg PO QAM Discontinued methotrexate sodium 2.5 mg tablet 20 mg PO WK Rx Instructions: ON HOLD TAKE EIGHT TABLETS ONCE A WEEK ON WEDNESDAYS doxycycline hyclate 100 mg capsule 100 mg PO BID Rx Instructions: STARTED 04/11/22 FOR 10 DAYS. Discharge Orders: Discharge Order (Routine); Ordered 04/24/22 Ordered By: Tripp Forrester/Other Patient Handouts: PICC, Flushing Your PICC Line at Home Admission Data Admit Date/Time: 04/14/22 18:36 Attending Provider: Tripp Patterson Admit Provider: Rashel Schafer Primary Care Provider: Sirena Lozano Other Providers: Jhonatan De Paz ; Rashel Schafer ; Alen Pulliam ; Gregg Degroot ; Maverick Vizcarra I. ; Houston Burger II ; Mayte Salvador ; Demetrio Cooper ; Willian Maya ; Bienvenido Li ; Fabrizio Torres ; [facility] ; Nelly Vizcarra Other Interventions: Discharge Summary Assessment (RN) Last Done: 04/24/22 09:22 Supervising Physician Co-Signing Physician Notes Patient seen and examined at bedside independently. Agree with above documentation by Nelly Vizcarra PA-C Patient to be discharged on 6 weeks of cefepime for gram-negative coverage and Flagyl for anaerobic coverage. PICC line in place. Patient's daughter was taught by infusion team. Patient has appointment with [facility] for PICC line dressing change. Patient to follow up with PCP.
[2022-04-24] MEDS: HEPARIN SOD 5,000 UNIT/0.5 ML VIAL SQ SCH (09:06)
[2022-04-24] MEDS: PANTOprazole 40 MG TAB PO SCH (09:07)
[2022-04-24] MEDS: CHOLECALCIFEROL 1,000 UNITS 25 MCG TAB PO SCH (09:07)
[2022-04-24] MEDS: ASCORBIC ACID 500 MG TAB PO SCH (09:07)
[2022-04-24] MEDS: ATORVASTATIN 20 MG TAB PO SCH (09:07)
[2022-04-24] MEDS: ASPIRIN 81 MG ECTAB PO SCH (09:07)
== END 2022-04-24 11:03 | disposition home or self-care (01) | DRG 982 ==
LOC: ED 13:14 → 3E 18:36 → SUATTDRO 18:36 → 3E 20:23